=== PATIENT | female | born 1980 | race Caucasian/White ===

== ENCOUNTER 2016-12-07 19:06 | Emergency (ER) | payer BC, OTHER ==
[~2016-12-07] VITALS: Ht 162.6 cm; Wt 115.9 kg
[~2016-12-07 19:06] MED LIST: LVQ500 PO
[2016-12-07 19:08] VITALS: Ht 162.6 cm; Wt 115.9 kg
[2016-12-07] MEDS ORDERED: XYLOCAINE 1%/SOD BICARB 20 ML VIAL INFIL ONE (19:30)
[2016-12-07] MEDS ORDERED: DIPHTHERIA/TETANUS/PERTUSSIS 0.5 ML SYR/VIAL IM. ONE (19:30)
--- NOTE | 2016-12-07 19:32 | EMERGENCY ROOM VISIT NOTE ---
ED Visit Note First contact with patient: 19:18 CHIEF COMPLAINT: Hand laceration HISTORY OF PRESENT ILLNESS: This 36-year-old female patient presents to the emergency department restrained long, after cutting the palmar aspect of her right hand just proximal to the thumb. The patient states she was attempting to tie out her brother's dog, when the tire slipped, and her hand got cut on the metal clip at the end. The bleeding has stopped. Denies weakness or numbness of the hand or fingers. The patient rates the pain as throbbing and 6/ 10. The patient denies any other injuries. The patient's Tetanus shot is not up to date. The patient denies history of hypertension. She states she is extremely stressed out due to the laceration, and states her pain is moderate. She suspects these factors are leading towards her elevated blood pressure at this time. REVIEW OF SYSTEMS: A 6 system review of systems was completed with positives and pertinent negatives listed in the HPI. ALLERGIES: None MEDICATIONS: None PMH: None SOCIAL HISTORY: Patient lives locally with her family. She denies drug, tobacco , alcohol use. PHYSICAL EXAM: Vital Signs: Reviewed Nurse's notes, vital signs stable. GENERAL : 36-year-old female, in no acute distress, well-developed, well-nourished. SKIN: There is a 6 cm long laceration on the palmar aspect of the right hand, just proximal to the thumb. The edges gape apart with traction. There is no foreign material in the wound and it looks clean. There is minimal bleeding. No deep structures such as tendons, bones, or significant blood vessels are seen in the base of the wound. Normal strength and movement of the fingers and wrist. Capillary refill less than 2 seconds. Normal sensation to light and sharp touch. EMERGENCY DEPARTMENT COURSE: I examined the patient. Verbal consent was obtained to perform the procedure. Using sterile technique the wound was cleansed with Betadine. The area was sterilely draped. 12 ml of 1% buffered lidocaine was used to anesthetize the laceration on the hand. Once the patient was anesthetized, the wound was copiously irrigated under pressure with sterile saline. The wound was explored and was as described above. The laceration was repaired using 14 simple interrupted 5-0 nylon sutures with the wound edges being well approximated. The patient tolerated the procedure well. Hemostasis was achieved. The area was cleaned with sterile saline and dressed with bacitracin ointment and bandage. The patient was given Tdap immunization. The patient complained of a significant amount of pain after the procedure, as some areas were not completely anesthetized. She was given a dose of Percocet 5/325 and reports improvement in her discomfort. The patient was discharged home in good condition. DIAGNOSIS: Hand laceration DIFFERENTIAL DIAGNOSIS: Hand laceration with tendon involvement, metatarsal fracture, phalange fracture, and others. DISCHARGE INSTRUCTIONS & TREATMENT: Patient was found to have an elevated blood pressure and was referred to their primary doctor for recheck and further treatment. You have received 14 sutures on your right hand. These sutures are NOT dissolvable and WILL need to be removed by a health care provider in 8-10 days. You can return to the Emergency Department or contact your Primary Care Provider to have the sutures removed. Proper wound care is essential for adequate wound healing and infection prevention. You can shower and clean the wound with soap and water. Do not scour over the wound, pat dry with a towel. Do not submerse the wound (i.e. bathe or dish wash) until the sutures have been removed. You can use an antibiotic ointment with a dressing over the wound for the next 3-4 days. After this time you may leave the wound dry and open to the air. If crust develops over the wound you can use a Q-tip to apply a 1:1 peroxide:water solution to clean the wound. Look for signs of infection of the wound including: increased pain, swelling, foul discharge, streaking, or increased temperature. If any of these are noticed you should return to the Emergency Department for further assessment and treatment. As with any laceration you may have received nerve damage to the surrounding tissues. This damage may or may not be permanent. You should keep the area covered with sunscreen for the first 6 months to 1 year when at risk for exposure to help minimize scarring. You can also use scar reducing creams or Vitamin E oil to help minimize scarring. For pain control, you can use the following [id number]-hbkvlcz medicines (if >12 yo): - Regular strength (325mg/tab) Tylenol (acetaminophen) 2 tabs every 4-6 hours as needed. Do not exceed 12 tablets in a 24 hour period. Avoid taking more than 4 grams (4000 mg) of Tylenol per day. This includes any other sources of acetaminophen you may take on a regular basis. - Regular strength (200 mg/tab) Advil (ibuprofen) 1-2 tabs every 4-6 hours as needed. Do not exceed a dose of 3200 mg per day. Return to the emergency department if your symptoms worsen despite treatment course outlined above. Your blood pressure was elevated in the emergency department. You should follow up with a primary care provider for recheck and reevaluation of your blood pressure, as if this is not a situational outpatient, you may need to be put on medications. Problem List Medical Problems: (1) History of open heart surgery Status: Resolved Surgical Problems: (1) History of Status: Resolved Current/Historical Medications Scheduled Rkqzlnf-Vrvbxezfcazas-Tgcwonmx (Excedrin Migraine), 3 TABS PO DAILY Allergies Coded Allergies: No Known Allergies (Verified , 12/07/16) Vital Signs Date Time Temp Pulse Resp B/P (MAP) Pulse Ox O2 Delivery O2 Flow Rate FiO2 12/07/16 19:08 36.7 100 16 197/113 95 Room Air Medications Administered Medications (Trade) Dose Ordered Sig/Jose Route Start Time Stop Time Status Last Admin Dose Admin Diphtheria/ Pertussis/Tetanus Vacc (Adacel Inj) 0.5 ml ONCE ONCE IM. 12/07/16 19:30 12/07/16 19:31 DC 12/07/16 19:54 0.5 ML Oxycodone/ Acetaminophen (Percocet 5-325mg Tab) 1 tab NOW STAT PO 12/07/16 20:54 12/07/16 20:55 DC 12/07/16 20:54 1 TAB Departure Information Impression Primary Impression: Hand laceration Dispostion Home / Self-Care Condition GOOD Referrals Ganga Vences M.D. ([facility]) (PCP) Patient Instructions [facility] Additional Instructions You have received 14 sutures on your right hand. These sutures are NOT dissolvable and WILL need to be removed by a health care provider in 8-10 days. You can return to the Emergency Department or contact your Primary Care Provider to have the sutures removed. Proper wound care is essential for adequate wound healing and infection prevention. You can shower and clean the wound with soap and water. Do not scour over the wound, pat dry with a towel. Do not submerse the wound (i.e. bathe or dish wash) until the sutures have been removed. You can use an antibiotic ointment with a dressing over the wound for the next 3-4 days. After this time you may leave the wound dry and open to the air. If crust develops over the wound you can use a Q-tip to apply a 1:1 peroxide:water solution to clean the wound. Look for signs of infection of the wound including: increased pain, swelling, foul discharge, streaking, or increased temperature. If any of these are noticed you should return to the Emergency Department for further assessment and treatment. As with any laceration you may have received nerve damage to the surrounding tissues. This damage may or may not be permanent. You should keep the area covered with sunscreen for the first 6 months to 1 year when at risk for exposure to help minimize scarring. You can also use scar reducing creams or Vitamin E oil to help minimize scarring. For pain control, you can use the following fhit-kjb-[id number] medicines (if >12 yo): - Regular strength (325mg/tab) Tylenol (acetaminophen) 2 tabs every 4-6 hours as needed. Do not exceed 12 tablets in a 24 hour period. Avoid taking more than 4 grams (4000 mg) of Tylenol per day. This includes any other sources of acetaminophen you may take on a regular basis. - Regular strength (200 mg/tab) Advil (ibuprofen) 1-2 tabs every 4-6 hours as needed. Do not exceed a dose of 3200 mg per day. Return to the emergency department if your symptoms worsen despite treatment course outlined above. Your blood pressure was elevated in the emergency department. You should follow up with a primary care provider for recheck and reevaluation of your blood pressure, as if this is not a situational outpatient, you may need to be put on medications. Problem Qualifiers Primary Impression: Hand laceration Encounter type: initial encounter Foreign body presence: without foreign body Laterality: right Qualified Codes: S61.411A - Laceration without foreign body of right hand, initial encounter
[2016-12-07] MEDS ORDERED: ASPI-390 PO (19:36)
[2016-12-07] MEDS ORDERED: OXYCODONE/ACETAMINOPHEN 5-325 TAB PO STA (20:54)
[2016-12-07 21:28] VITALS: BP 208/105; PULSE 100; TEMP 36.7; O2SAT 95
== END 2016-12-07 21:29 | disposition home or self-care (01) ==
LOC: C.EDB 19:07 → C.EDD 21:29
DX: S61.411A Laceration without foreign body of right hand, initial encounter (principal); W45.8XXA Other foreign body or object entering through skin, initial encounter; Z23 Encounter for immunization

== ENCOUNTER 2022-04-30 18:39 | Inpatient (IN) ==
[2022-04-30] MEDS ORDERED: CEFEPIME 2,000 MG/20 ML VIAL IV STA (18:58)
[2022-04-30] MEDS ORDERED: ALBUT/IPRATROP 3MG/0.5MG NEB 3 ML VIAL NEB ONE (19:03)
[2022-04-30] MEDS ORDERED: dexAMETHasone**PF** 10 MG/ML VIAL IV ONE (19:03)
--- NOTE | 2022-04-30 19:03 | Emergency Department Note ---
Impression & Plan Acute hypoxemic respiratory failure, Right lower lobe pneumonia, Adenovirus infection, Substernal chest pain ED Provider Note Name: ANU VILLARREAL Age: 42 Sex: F Arrives Via: Walk-In Informant: Patient, ED Provider: Reggie Melara MD Chief Complaint: Shortness of breath Impression: As per impressions above Medical Decision Making: Pleasant 42-year-old female with a history of hypertension, diabetes, asthma who has a previous ASD repair at the age of 15 as well as previous . Patient with rapidly worsening breathing and substernal chest pain throughout the day today. She was diagnosed with a right lower lobe pneumonia 2 days ago in the ER. At that time she had an extensive work-up including a CTA of the chest without evidence of PE or dissection. On arrival patient is quite short of breath oxygen in the low 90s she is significantly tachycardic and I have significant concerns for developing sepsis. Septic work-up initiated she had blood cultures, lactic acid obtained as well as 30/kg IV fluids started given her tachycardia and dehydration status. She was empirically given IV cefepime. Chest x-ray confirms right lower lobe infiltrate and she was started on an hour- long nebulizer given her breathing difficulty. She was also given IV steroids at this time. The patient does feel somewhat better after nebulizer and fluids though she is noted to worsening oxygenation requiring 6 L nasal cannula to keep her O2 sats in the low to mid 90s. She is not in significant distress at this time but is definitively requiring oxygen for support. Hospitalist consulted for further management. I will note on repeat evaluations patient is well- hydrated her heart rate has improved to the 90s she has good cap refill and is stable appearing other than her hypoxia. I will note that throughout the beginning of her stay patient with substernal chest pressure.. Her EKG was unremarkable and it was repeated 15 minutes later without any significant changes. Her troponin is normal and I suspect her substernal discomfort is more due to respiratory issue than cardiac at this time. There is no widening of the mediastinum and I not feel that there is evidence of dissection and it seems unlikely that she would have developed a PE in just the last 2 days given her other findings. Prior Medical Record and Triage/Nursing Notes reviewed by Me Additional history obtained from chart and Differentials:Reactive airway disease, pneumonia, pneumothorax, COPD, CHF, infections, cardiac ischemia, pulmonary embolism, musculoskeletal, gastrointestinal, as well as other pathologies. Vital Signs: reviewed and remarkable for mildly low O2 sats on arrival though dropping throughout her stay. Interventions: 2 L normal saline bolus (Given the patients BMI >30, IBW was used to calculate the 30ml/kg fluid bolus), cefepime 2 g IV, Decadron 10 mg IV, DuoNeb 1 hour neb Labs:Reviewed and remarkable for all note the patient had Imagin view chest x-ray reveals right lower lobe infiltrate EKG:As per my interpretation. Indication chest pain. Sinus tachycardia at 112 bpm and QTC of 450. There are no previous EKGs for comparison. There is no ectopy. There is no STEMI appreciated. There are Q waves septally. Cardiac/Tele Monitoring: Cardiac Monitoring: An Order was placed for continuous cardiac monitoring. The monitor shows a rate of 120 with a sinus tach rhythm. Consults:Dr Ezekiel RUANO Hospitalist Plan: Disposition:Hospitalization. Condition: Good History of Present Illness: 42-year-old female arrives for evaluation of illness. Patient notes she has been ill for the last week or so. She was seen in the ER few days ago and diagnosed with a right lower lobe pneumonia. She was started on Doxy and Omnicef. Patient states that since getting home symptoms have continued to worsen. She states any exertion she gets severely short of breath. She is unable to ambulate. She feels weak fatigued and has no appetite. She has not had a fever but feels chills. She did have diffuse body aches. She notes she started having a pressure-like chest sensation over the last few days as well. Feels like she has a rattle in her lungs and she cannot take a deep breath. No falls, trauma, injuries. She denies any rashes, abdominal pain, headache, neck pain, sore throat, back pain, urinary/bowel symptoms, leg swelling, calf pain or other concerning signs or symptoms. She does have a history of pneumonia several years ago which she was quite sick for. She does have a history of an atrial septal defect repaired at age 15. Patient has been taking antibiotics without improvement. Any exertion makes severely worse. Rest makes lately better. ROS: See above HPI for pertinent positives & negatives. A total of 10 systems reviewed and were otherwise negative. Past Medical History:Hypertension, diabetes, asthma Past Surgical History:Open heart surgery for septal defect Family History:See Below Social History:See Below Home Medications:See Below Allergies:NKDA Vitals:Blood Pressure: 159/102, Pulse 120, RR 18, T 36.5C, O2 93% on RA Physical Exam: GENERAL: Patient is unwell appearing and in moderate distress. EYES: No scleral icterus, unremarkable pupils. ENT: Mucous membranes dry, no nasal congestion. NECK: No masses appreciated, nomeningismus, trachea is midline. RESPIRATORY: Tachycardic, dyspneic. Diffuse wheezing with crackles in right lower lobe CARDIOVASCULAR: Tachy.No murmurs, rubs, gallops appreciated. GASTROINTESTINAL: Abdomen soft, non-tender, no peritonitis.Bowel sounds positive.No masses appreciated. BACK: No midline tenderness, no CVA tenderness EXTREMITIES: Normal motion all extremities, no cyanosis, no edema. NEUROLOGIC: Alert and oriented, no acute motor or sensory deficits, no focal weakness, cranial nerves grossly intact. SKIN: No rash, no jaundice, no diaphoresis. PSYCH: Appropriate GCS: 15 ED Course: Times/Reassessments: Multiple repeat evaluations of patient throughout her stay. She is improving with the IV fluid bolus and nebulizer. Oxygen though is dropping throughout her stay and requiring increased nasal cannula O2. Agreeable to hospitalization. Critical Care: I have personally spent 40 minutes of critical care time in the direct management of this patient. Hypoxic respiratory failure secondary to right lower lobe pneumonia and early. This was a life/limb threatening event. This 40 minutes is in excess of all separately billable procedures. Reggie Melara MD Past Med/Surg History Medical History Diabetes mellitus Pneumonia Social History Smoking Status: Never smoker Second Hand Exposure: No; Do You Dip or Chew Tobacco: No; Tobacco Cessation Education Requested by Patient: No Hx Alcohol Use: No Hx Substance Use: No Preferred Language: Sudanese Communication Ability: Effective Sandblaster Supervisor Required: No Beliefs That Will Affect Care: None Current Living Situation: Spouse Current Living Situation Comment: Home with Other Information That Helps Us Care for You: No Feels Safe at Home: Yes Safety Concerns: Feels Safe At This Time Allergies Allergies Allergy/AdvReac Type Severity Reaction Status Date / Time No Known Allergies Allergy Verified 04/30/22 19:45 Home Meds Home Medications Medication Instructions Recorded Confirmed lisinopril 10 1 tab PO DAILY 04/27/22 04/30/22 mg-hydrochlorothiazide 12.5 mg tablet metformin 500 mg tablet,extended 1,000 mg PO BID 04/27/22 04/30/22 release 24 hr Previous Rx's Medication Instructions Recorded albuterol sulfate 90 mcg/actuation 2 inh inhalation Q6H #18 grams 04/27/22 aerosol inhaler cefdinir 300 mg capsule 300 mg PO BID 10 days #20 caps 04/27/22 doxycycline hyclate 100 mg tablet 100 mg PO BID 10 days #20 tabs 04/27/22 Results & Data (ED) Vital Signs Vital Signs - 24 hr 04/30/22 18:44 04/30/22 19:03 04/30/22 19:03 Temperature 36.5 C Temperature Source Oral Pulse Rate 120 H Pulse Rate [Carotid] 107 H Pulse Rate from SpO2 Sensor Pulse Rhythm Regular Pulse Rhythm [Carotid] Regular Pulse Strength Normal Pulse Strength [Carotid] Normal Respiratory Rate 18 24 Respiratory Effort / Characteristics Non-Labored Spontaneous Respiratory Depth Normal Shallow Respiratory Pattern Regular Blood Pressure 159/102 H Blood Pressure [Left Arm] 179/113 H Blood Pressure Mean 121 Blood Pressure Mean [Left Arm] 135 Blood Pressure Position Sitting Pulse Oximetry 93 93 93 Oxygen Delivery Method Room Air Room Air Room Air Oxygen Flow Rate Sepsis Recent Fever Within 48 Hours No Sepsis New/Unexplained Change in Mental Status No Sepsis Action Taken by Nursing No Action Required 04/30/22 19:06 04/30/22 20:00 04/30/22 18:57 Temperature Temperature Source Pulse Rate 107 H 118 H Pulse Rate [Carotid] 101 H Pulse Rate from SpO2 Sensor 121 H Pulse Rhythm Regular Pulse Rhythm [Carotid] Regular Pulse Strength Pulse Strength [Carotid] Normal Respiratory Rate 26 H 20 30 H Respiratory Effort / Characteristics Respiratory Depth Respiratory Pattern Blood Pressure Blood Pressure [Left Arm] Blood Pressure Mean Blood Pressure Mean [Left Arm] Blood Pressure Position Pulse Oximetry 95 99 95 Oxygen Delivery Method Room Air Room Air Oxygen Flow Rate Sepsis Recent Fever Within 48 Hours Sepsis New/Unexplained Change in Mental Status Sepsis Action Taken by Nursing 04/30/22 19:00 04/30/22 19:03 04/30/22 19:03 Temperature Temperature Source Pulse Rate 112 H 108 H Pulse Rate [Carotid] Pulse Rate from SpO2 Sensor 113 H 110 H Pulse Rhythm Pulse Rhythm [Carotid] Pulse Strength Pulse Strength [Carotid] Respiratory Rate 18 32 H Respiratory Effort / Characteristics Respiratory Depth Respiratory Pattern Blood Pressure 179/113 H Blood Pressure [Left Arm] Blood Pressure Mean 135 Blood Pressure Mean [Left Arm] Blood Pressure Position Pulse Oximetry 94 94 Oxygen Delivery Method Oxygen Flow Rate Sepsis Recent Fever Within 48 Hours Sepsis New/Unexplained Change in Mental Status Sepsis Action Taken by Nursing 04/30/22 19:10 04/30/22 19:15 04/30/22 19:15 Temperature Temperature Source Pulse Rate 105 H 107 H Pulse Rate [Carotid] Pulse Rate from SpO2 Sensor 106 H 108 H Pulse Rhythm Pulse Rhythm [Carotid] Pulse Strength Pulse Strength [Carotid] Respiratory Rate 33 H 24 Respiratory Effort / Characteristics Respiratory Depth Respiratory Pattern Blood Pressure 159/105 H Blood Pressure [Left Arm] Blood Pressure Mean 123 Blood Pressure Mean [Left Arm] Blood Pressure Position Pulse Oximetry 94 91 Oxygen Delivery Method Oxygen Flow Rate Sepsis Recent Fever Within 48 Hours Sepsis New/Unexplained Change in Mental Status Sepsis Action Taken by Nursing 04/30/22 19:20 04/30/22 19:30 04/30/22 19:40 Temperature Temperature Source Pulse Rate 98 H 104 H 108 H Pulse Rate [Carotid] Pulse Rate from SpO2 Sensor 99 H 108 H Pulse Rhythm Pulse Rhythm [Carotid] Pulse Strength Pulse Strength [Carotid] Respiratory Rate 12 20 24 Respiratory Effort / Characteristics Respiratory Depth Respiratory Pattern Blood Pressure Blood Pressure [Left Arm] Blood Pressure Mean Blood Pressure Mean [Left Arm] Blood Pressure Position Pulse Oximetry 95 97 Oxygen Delivery Method Oxygen Flow Rate Sepsis Recent Fever Within 48 Hours Sepsis New/Unexplained Change in Mental Status Sepsis Action Taken by Nursing 04/30/22 19:45 04/30/22 19:45 04/30/22 19:50 Temperature Temperature Source Pulse Rate 111 H 94 H Pulse Rate [Carotid] Pulse Rate from SpO2 Sensor 110 H 95 H Pulse Rhythm Pulse Rhythm [Carotid] Pulse Strength Pulse Strength [Carotid] Respiratory Rate 19 21 Respiratory Effort / Characteristics Respiratory Depth Respiratory Pattern Blood Pressure 175/110 H Blood Pressure [Left Arm] Blood Pressure Mean 131 Blood Pressure Mean [Left Arm] Blood Pressure Position Pulse Oximetry 90 95 Oxygen Delivery Method Oxygen Flow Rate Sepsis Recent Fever Within 48 Hours Sepsis New/Unexplained Change in Mental Status Sepsis Action Taken by Nursing 04/30/22 20:00 04/30/22 20:00 04/30/22 20:10 Temperature Temperature Source Pulse Rate 96 H 99 H Pulse Rate [Carotid] Pulse Rate from SpO2 Sensor 94 H 99 H Pulse Rhythm Pulse Rhythm [Carotid] Pulse Strength Pulse Strength [Carotid] Respiratory Rate 24 16 Respiratory Effort / Characteristics Respiratory Depth Respiratory Pattern Blood Pressure 184/117 H Blood Pressure [Left Arm] Blood Pressure Mean 139 Blood Pressure Mean [Left Arm] Blood Pressure Position Pulse Oximetry 98 100 Oxygen Delivery Method Oxygen Flow Rate Sepsis Recent Fever Within 48 Hours Sepsis New/Unexplained Change in Mental Status Sepsis Action Taken by Nursing 04/30/22 20:15 04/30/22 20:15 04/30/22 20:20 Temperature Temperature Source Pulse Rate 105 H Pulse Rate [Carotid] Pulse Rate from SpO2 Sensor 103 H Pulse Rhythm Pulse Rhythm [Carotid] Pulse Strength Pulse Strength [Carotid] Respiratory Rate 23 Respiratory Effort / Characteristics Respiratory Depth Respiratory Pattern Blood Pressure 182/107 H 174/112 H Blood Pressure [Left Arm] Blood Pressure Mean 132 132 Blood Pressure Mean [Left Arm] Blood Pressure Position Pulse Oximetry 90 Oxygen Delivery Method Oxygen Flow Rate Sepsis Recent Fever Within 48 Hours Sepsis New/Unexplained Change in Mental Status Sepsis Action Taken by Nursing 04/30/22 20:20 04/30/22 20:30 04/30/22 20:30 Temperature Temperature Source Pulse Rate 104 H 113 H Pulse Rate [Carotid] Pulse Rate from SpO2 Sensor 104 H 113 H Pulse Rhythm Pulse Rhythm [Carotid] Pulse Strength Pulse Strength [Carotid] Respiratory Rate 19 22 Respiratory Effort / Characteristics Respiratory Depth Respiratory Pattern Blood Pressure 169/99 H Blood Pressure [Left Arm] Blood Pressure Mean 122 Blood Pressure Mean [Left Arm] Blood Pressure Position Pulse Oximetry 100 96 Oxygen Delivery Method Oxygen Flow Rate Sepsis Recent Fever Within 48 Hours Sepsis New/Unexplained Change in Mental Status Sepsis Action Taken by Nursing 04/30/22 20:40 04/30/22 20:45 04/30/22 20:45 Temperature Temperature Source Pulse Rate 113 H 120 H Pulse Rate [Carotid] Pulse Rate from SpO2 Sensor 114 H 119 H Pulse Rhythm Pulse Rhythm [Carotid] Pulse Strength Pulse Strength [Carotid] Respiratory Rate 20 20 Respiratory Effort / Characteristics Respiratory Depth Respiratory Pattern Blood Pressure 190/120 H Blood Pressure [Left Arm] Blood Pressure Mean 143 Blood Pressure Mean [Left Arm] Blood Pressure Position Pulse Oximetry 96 96 Oxygen Delivery Method Oxygen Flow Rate Sepsis Recent Fever Within 48 Hours Sepsis New/Unexplained Change in Mental Status Sepsis Action Taken by Nursing 04/30/22 21:15 04/30/22 21:28 04/30/22 20:50 Temperature Temperature Source Pulse Rate 119 H Pulse Rate [Carotid] 113 H Pulse Rate from SpO2 Sensor 118 H Pulse Rhythm Pulse Rhythm [Carotid] Regular Pulse Strength Pulse Strength [Carotid] Normal Respiratory Rate 28 H 26 H 36 H Respiratory Effort / Characteristics Short of Breath Respiratory Depth Shallow Shallow Respiratory Pattern Blood Pressure Blood Pressure [Left Arm] 159/99 H Blood Pressure Mean Blood Pressure Mean [Left Arm] 119 Blood Pressure Position Pulse Oximetry 88 L 94 96 Oxygen Delivery Method Room Air Oxymask Oxygen Flow Rate 15 Sepsis Recent Fever Within 48 Hours Sepsis New/Unexplained Change in Mental Status Sepsis Action Taken by Nursing 04/30/22 21:00 04/30/22 21:00 04/30/22 21:06 Temperature Temperature Source Pulse Rate 120 H Pulse Rate [Carotid] Pulse Rate from SpO2 Sensor 120 H Pulse Rhythm Pulse Rhythm [Carotid] Pulse Strength Pulse Strength [Carotid] Respiratory Rate 27 H Respiratory Effort / Characteristics Respiratory Depth Respiratory Pattern Blood Pressure 205/134 H 174/97 H Blood Pressure [Left Arm] Blood Pressure Mean 157 122 Blood Pressure Mean [Left Arm] Blood Pressure Position Pulse Oximetry 90 Oxygen Delivery Method Oxygen Flow Rate Sepsis Recent Fever Within 48 Hours Sepsis New/Unexplained Change in Mental Status Sepsis Action Taken by Nursing 04/30/22 21:06 04/30/22 21:10 04/30/22 21:12 Temperature Temperature Source Pulse Rate 120 H 117 H Pulse Rate [Carotid] Pulse Rate from SpO2 Sensor 120 H 117 H Pulse Rhythm Pulse Rhythm [Carotid] Pulse Strength Pulse Strength [Carotid] Respiratory Rate 30 H 25 H Respiratory Effort / Characteristics Respiratory Depth Respiratory Pattern Blood Pressure 152/102 H Blood Pressure [Left Arm] Blood Pressure Mean 118 Blood Pressure Mean [Left Arm] Blood Pressure Position Pulse Oximetry 91 91 Oxygen Delivery Method Oxygen Flow Rate Sepsis Recent Fever Within 48 Hours Sepsis New/Unexplained Change in Mental Status Sepsis Action Taken by Nursing 04/30/22 21:12 04/30/22 21:15 04/30/22 21:15 Temperature Temperature Source Pulse Rate 99 H 97 H Pulse Rate [Carotid] Pulse Rate from SpO2 Sensor 103 H 97 H Pulse Rhythm Pulse Rhythm [Carotid] Pulse Strength Pulse Strength [Carotid] Respiratory Rate 32 H 19 Respiratory Effort / Characteristics Respiratory Depth Respiratory Pattern Blood Pressure 159/99 H Blood Pressure [Left Arm] Blood Pressure Mean 119 Blood Pressure Mean [Left Arm] Blood Pressure Position Pulse Oximetry 91 93 Oxygen Delivery Method Oxygen Flow Rate Sepsis Recent Fever Within 48 Hours Sepsis New/Unexplained Change in Mental Status Sepsis Action Taken by Nursing 04/30/22 21:20 04/30/22 21:30 04/30/22 21:30 Temperature Temperature Source Pulse Rate 110 H 95 H Pulse Rate [Carotid] Pulse Rate from SpO2 Sensor 108 H 95 H Pulse Rhythm Pulse Rhythm [Carotid] Pulse Strength Pulse Strength [Carotid] Respiratory Rate 25 H 17 Respiratory Effort / Characteristics Respiratory Depth Respiratory Pattern Blood Pressure 154/84 H Blood Pressure [Left Arm] Blood Pressure Mean 107 Blood Pressure Mean [Left Arm] Blood Pressure Position Pulse Oximetry 95 97 Oxygen Delivery Method Oxygen Flow Rate Sepsis Recent Fever Within 48 Hours Sepsis New/Unexplained Change in Mental Status Sepsis Action Taken by Nursing 04/30/22 21:40 04/30/22 21:50 Temperature Temperature Source Pulse Rate 103 H 97 H Pulse Rate [Carotid] Pulse Rate from SpO2 Sensor 104 H 99 H Pulse Rhythm Pulse Rhythm [Carotid] Pulse Strength Pulse Strength [Carotid] Respiratory Rate 30 H 26 H Respiratory Effort / Characteristics Respiratory Depth Respiratory Pattern Blood Pressure Blood Pressure [Left Arm] Blood Pressure Mean Blood Pressure Mean [Left Arm] Blood Pressure Position Pulse Oximetry 94 92 Oxygen Delivery Method Oxygen Flow Rate Sepsis Recent Fever Within 48 Hours Sepsis New/Unexplained Change in Mental Status Sepsis Action Taken by Nursing Laboratory Data Result diagrams: 05/01/22 04:56 05/01/22 04:56 Lab Results 04/30/22 04/30/22 04/30/22 Range/Units 19:16 19:16 19:16 WBC 8.35 (4.8-10.8) K/ul RBC 4.69 (3.93-5.22) M/uL Hgb 13.9 (12.0-16.0) g/dl Hct 39.5 (34.1-44.9) % MCV 84.2 (80.0-100.0) fL MCH 29.6 (25.0-34.0) pg MCHC 35.2 (32.0-36.0) g/dL RDW Std Deviation 35.8 L (36.4-46.3) fL RDW Coeff of Eleonora 11.9 (11.5-14.5) % Plt Count 299 (130-400) K/uL MPV 10.4 (9.4-12.3) fL Immature Gran % (Auto) 1.2 % Neut % (Auto) 70.1 % Lymph % (Auto) 17.0 % Coal % (Auto) 8.4 % Eos % (Auto) 2.5 % Baso % (Auto) 0.8 % Neut # (Auto) 5.85 (1.4-6.5) K/uL Lymph # (Auto) 1.42 (1.2-3.4) K/uL Coal # (Auto) 0.70 (0.24-0.82) K/uL Eos # (Auto) 0.21 (0-0.50) K/uL Baso # (Auto) 0.07 (0-0.2) K/uL Immature Gran # (Auto) 0.10 H (0.00-0.02) K/uL ABG pH (7.35-7.45) ABG pCO2 (35-46) mmHg ABG pO2 (80-95) mmHg ABG HCO3 (19-24) mmol/L ABG O2 Saturation (90-95) % ABG Base Excess (-9-1.8) mEq/L El Test (Pos) Oxygen Given Sodium 135 L (136-145) mmol/L Potassium 3.7 (3.5-5.1) mmol/L Chloride 98 (98-107) mmol/L Carbon Dioxide 25 (21-32) mmol/L Anion Gap 12 H (3-11) BUN 14 (6-23) mg/dl Creatinine 0.71 (0.6-1.2) mg/dl Est Cr Clr Drug Dosing 118.3 ml/min Est GFR ( Amer) 122.6 ml/min Est GFR (Non-Af Amer) 105.8 ml/min BUN/Creatinine Ratio 19.7 (10-20) Glucose 270 H (70-99(Fasting)) mg/dl Estimat Average Glucose mg/dl Hemoglobin A1c (4.5-5.6) % Lactate 1.5 (0.4-2.0) mmol/L Calcium 9.5 (8.5-10.1) mg/dl Magnesium 1.7 (1.7-2.4) mg/dl Total Bilirubin 0.5 (0.2-1.0) mg/dl Direct Bilirubin 0.1 (0-0.2) mg/dl AST 24 (13-39) U/L ALT 25 (7-52) U/L Alkaline Phosphatase 66 (34-104) U/L Troponin I High Sens 3.7 (0-14) pg/ml Total Protein 7.7 (6.0-8.3) gm/dl Albumin 3.9 (3.4-5.0) gm/dl Procalcitonin (0-0.5) ng/ml TSH (0.300-4.500) uIu/ml Adenovirus (PCR) (NotDetected) B. pertussis DNA (PCR) (NotDetected) B.parapertussis DNA PCR (NotDetected) C. pneumoniae DNA (PCR) (NotDetected) Coronavirus OC43 (PCR) (NotDetected) Coronavirus HKU1 (PCR) (NotDetected) Coronavirus 229E (PCR) (NotDetected) SARS-CoV-2 (PCR) (NotDetected) Coronavirus NL63 (PCR) (NotDetected) Human Metapneumovir PCR (NotDetected) Influenza Type A (PCR) (NotDetected) Influenza Type B (PCR) (NotDetected) M. pneumoniae (PCR) (NotDetected) Parainfluenza 1 (PCR) (NotDetected) Parainfluenza 2 (PCR) (NotDetected) Parainfluenza 3 (PCR) (NotDetected) Parainfluenza 4 (PCR) (NotDetected) RSV (PCR) (NotDetected) Entero/Rhino (PCR) (NotDetected) 04/30/22 04/30/22 04/30/22 Range/Units 19:16 19:16 19:16 WBC (4.8-10.8) K/ul RBC (3.93-5.22) M/uL Hgb (12.0-16.0) g/dl Hct (34.1-44.9) % MCV (80.0-100.0) fL MCH (25.0-34.0) pg MCHC (32.0-36.0) g/dL RDW Std Deviation (36.4-46.3) fL RDW Coeff of Eleonora (11.5-14.5) % Plt Count (130-400) K/uL MPV (9.4-12.3) fL Immature Gran % (Auto) % Neut % (Auto) % Lymph % (Auto) % Coal % (Auto) % Eos % (Auto) % Baso % (Auto) % Neut # (Auto) (1.4-6.5) K/uL Lymph # (Auto) (1.2-3.4) K/uL Coal # (Auto) (0.24-0.82) K/uL Eos # (Auto) (0-0.50) K/uL Baso # (Auto) (0-0.2) K/uL Immature Gran # (Auto) (0.00-0.02) K/uL ABG pH (7.35-7.45) ABG pCO2 (35-46) mmHg ABG pO2 (80-95) mmHg ABG HCO3 (19-24) mmol/L ABG O2 Saturation (90-95) % ABG Base Excess (-9-1.8) mEq/L El Test (Pos) Oxygen Given Sodium (136-145) mmol/L Potassium (3.5-5.1) mmol/L Chloride (98-107) mmol/L Carbon Dioxide (21-32) mmol/L Anion Gap (3-11) BUN (6-23) mg/dl Creatinine (0.6-1.2) mg/dl Est Cr Clr Drug Dosing ml/min Est GFR ( Amer) ml/min Est GFR (Non-Af Amer) ml/min BUN/Creatinine Ratio (10-20) Glucose (70-99(Fasting)) mg/dl Estimat Average Glucose 220 mg/dl Hemoglobin A1c 9.3 H (4.5-5.6) % Lactate (0.4-2.0) mmol/L Calcium (8.5-10.1) mg/dl Magnesium (1.7-2.4) mg/dl Total Bilirubin (0.2-1.0) mg/dl Direct Bilirubin (0-0.2) mg/dl AST (13-39) U/L ALT (7-52) U/L Alkaline Phosphatase (34-104) U/L Troponin I High Sens (0-14) pg/ml Total Protein (6.0-8.3) gm/dl Albumin (3.4-5.0) gm/dl Procalcitonin 0.10 (0-0.5) ng/ml TSH 0.629 (0.300-4.500) uIu/ml Adenovirus (PCR) (NotDetected) B. pertussis DNA (PCR) (NotDetected) B.parapertussis DNA PCR (NotDetected) C. pneumoniae DNA (PCR) (NotDetected) Coronavirus OC43 (PCR) (NotDetected) Coronavirus HKU1 (PCR) (NotDetected) Coronavirus 229E (PCR) (NotDetected) SARS-CoV-2 (PCR) (NotDetected) Coronavirus NL63 (PCR) (NotDetected) Human Metapneumovir PCR (NotDetected) Influenza Type A (PCR) (NotDetected) Influenza Type B (PCR) (NotDetected) M. pneumoniae (PCR) (NotDetected) Parainfluenza 1 (PCR) (NotDetected) Parainfluenza 2 (PCR) (NotDetected) Parainfluenza 3 (PCR) (NotDetected) Parainfluenza 4 (PCR) (NotDetected) RSV (PCR) (NotDetected) Entero/Rhino (PCR) (NotDetected) 04/30/22 04/30/22 Range/Units 19:28 21:46 WBC (4.8-10.8) K/ul RBC (3.93-5.22) M/uL Hgb (12.0-16.0) g/dl Hct (34.1-44.9) % MCV (80.0-100.0) fL MCH (25.0-34.0) pg MCHC (32.0-36.0) g/dL RDW Std Deviation (36.4-46.3) fL RDW Coeff of Eleonora (11.5-14.5) % Plt Count (130-400) K/uL MPV (9.4-12.3) fL Immature Gran % (Auto) % Neut % (Auto) % Lymph % (Auto) % Coal % (Auto) % Eos % (Auto) % Baso % (Auto) % Neut # (Auto) (1.4-6.5) K/uL Lymph # (Auto) (1.2-3.4) K/uL Coal # (Auto) (0.24-0.82) K/uL Eos # (Auto) (0-0.50) K/uL Baso # (Auto) (0-0.2) K/uL Immature Gran # (Auto) (0.00-0.02) K/uL ABG pH 7.43 (7.35-7.45) ABG pCO2 30 L (35-46) mmHg ABG pO2 104 H (80-95) mmHg ABG HCO3 20 (19-24) mmol/L ABG O2 Saturation 98.6 H (90-95) % ABG Base Excess -3.3 (-9-1.8) mEq/L El Test Pos (Pos) Oxygen Given 15 Sodium (136-145) mmol/L Potassium (3.5-5.1) mmol/L Chloride (98-107) mmol/L Carbon Dioxide (21-32) mmol/L Anion Gap (3-11) BUN (6-23) mg/dl Creatinine (0.6-1.2) mg/dl Est Cr Clr Drug Dosing ml/min Est GFR ( Amer) ml/min Est GFR (Non-Af Amer) ml/min BUN/Creatinine Ratio (10-20) Glucose (70-99(Fasting)) mg/dl Estimat Average Glucose mg/dl Hemoglobin A1c (4.5-5.6) % Lactate (0.4-2.0) mmol/L Calcium (8.5-10.1) mg/dl Magnesium (1.7-2.4) mg/dl Total Bilirubin (0.2-1.0) mg/dl Direct Bilirubin (0-0.2) mg/dl AST (13-39) U/L ALT (7-52) U/L Alkaline Phosphatase (34-104) U/L Troponin I High Sens (0-14) pg/ml Total Protein (6.0-8.3) gm/dl Albumin (3.4-5.0) gm/dl Procalcitonin (0-0.5) ng/ml TSH (0.300-4.500) uIu/ml Adenovirus (PCR) DETECTED A* (NotDetected) B. pertussis DNA (PCR) Not Detected (NotDetected) B.parapertussis DNA PCR Not Detected (NotDetected) C. pneumoniae DNA (PCR) Not Detected (NotDetected) Coronavirus OC43 (PCR) Not Detected (NotDetected) Coronavirus HKU1 (PCR) Not Detected (NotDetected) Coronavirus 229E (PCR) Not Detected (NotDetected) SARS-CoV-2 (PCR) Not Detected (NotDetected) Coronavirus NL63 (PCR) Not Detected (NotDetected) Human Metapneumovir PCR Not Detected (NotDetected) Influenza Type A (PCR) Not Detected (NotDetected) Influenza Type B (PCR) Not Detected (NotDetected) M. pneumoniae (PCR) Not Detected (NotDetected) Parainfluenza 1 (PCR) Not Detected (NotDetected) Parainfluenza 2 (PCR) Not Detected (NotDetected) Parainfluenza 3 (PCR) Not Detected (NotDetected) Parainfluenza 4 (PCR) Not Detected (NotDetected) RSV (PCR) Not Detected (NotDetected) Entero/Rhino (PCR) Not Detected (NotDetected) Administered Medications Enoxaparin Sodium (Enoxaparin Inj 40 Mg/0.4 Ml Syr) 40 mg SQ QAM [facility] Stop: 05/31/22 08:59 Last Admin: 05/01/22 08:49 Dose: 40 mg Documented By: [id number] Piperacillin Sod/Tazobactam (Sod 4.5 gm/ Dextrose) 120 mls @ 30 mls/hr IV Q8H [facility]; Protocol Stop: 05/08/22 05:59 Last Infusion: 05/01/22 10:16 Dose: 0 mls/hr Documented By: [id number] Admin: 05/01/22 06:04 Dose: 30 mls/hr Documented By: ARR Sodium Chloride (Nss 1000ml) 1,000 mls @ 50 mls/hr IV .Q20H ONE Stop: 05/01/22 21:36 Last Admin: 05/01/22 02:01 Dose: 50 mls/hr Documented By: ARR Insulin Aspart (Insulin Aspart Per Unit) 0 units SC ACHS [facility] Stop: 05/31/22 03:59 Last Admin: 05/01/22 08:48 Dose: 3 units Documented By: [id number] Co-signed By: MINNIE Admin: 05/01/22 04:19 Dose: 7 units Documented By: ARR Co-signed By: SHANNAN Insulin Glargine (Lantus Per Unit Charge) 20 units SQ BID [facility] Stop: 05/31/22 05:39 Last Admin: 05/01/22 06:09 Dose: 20 units Documented By: ARR Co-signed By: RUBIN Ipratropium [place] (Ipratropium [place] Neb Soln 0.02% 2.5 Ml Vial) 0.5 mg INH Q6R [facility] Stop: 05/31/22 00:59 Last Admin: 05/01/22 06:56 Dose: 0.5 mg Documented By: Admin: 05/01/22 01:52 Dose: 0.5 mg Documented By: KISHAN Levalbuterol HCl (Levalbuterol 1.25mg/0.5ml Neb) 1.25 mg INH Q6R [facility] Stop: 05/31/22 00:59 Last Admin: 05/01/22 06:56 Dose: 1.25 mg Documented By: Admin: 05/01/22 01:52 Dose: 1.25 mg Documented By: KISHAN Lisinopril (Lisinopril 10 Mg Tab) 10 mg PO QAM [facility] Stop: 05/31/22 08:59 Last Admin: 05/01/22 08:49 Dose: 10 mg Documented By: [id number] Prednisone (Prednisone 20 Mg Tab) 20 mg PO DAILY [facility] Stop: 05/04/22 08:59 Last Admin: 05/01/22 08:50 Dose: 20 mg Documented By: [id number] Discontinued Medications Albuterol (Albut/Ipratrop 3mg/0.5mg Neb 3 Ml Vial) 12 ml NEB ONE ONE; Protocol Stop: 04/30/22 19:04 Last Admin: 04/30/22 20:03 Dose: 12 ml Documented By: JUANA Dexamethasone Sodium Phosphate (DexamethasonePf 10 Mg/Ml Vial) 10 mg IV NOW ONE Stop: 04/30/22 19:04 Last Admin: 04/30/22 19:20 Dose: 10 mg Documented By: NASRA Sodium Chloride (Nss 1000ml) 1,000 mls @ 999 mls/hr IV .Q1H1M [facility] Stop: 04/30/22 21:00 Last Infusion: 04/30/22 20:46 Dose: 0 mls/hr Documented By: Admin: 04/30/22 20:11 Dose: 999 mls/hr Documented By: Infusion: 04/30/22 20:11 Dose: 0 mls/hr Documented By: Admin: 04/30/22 19:09 Dose: 999 mls/hr Documented By: NASRA Cefepime HCl (Maxipime) 2,000 mg in 20 mls @ 5 mls/min IV NOW STA; Protocol Stop: 04/30/22 19:01 Last Admin: 04/30/22 19:19 Dose: 5 mls/min Documented By: NASRA Acetaminophen (Ofirmev) 1,000 mg in 100 mls @ 400 mls/hr IV NOW STA Stop: 04/30/22 19:35 Last Infusion: 04/30/22 20:46 Dose: 0 mls/hr Documented By: Admin: 04/30/22 20:20 Dose: 400 mls/hr Documented By: NASRA Magnesium Sulfate/Dextrose (Magnesium Sulfate / D5w) 1 gm in 100 mls @ 50 mls/hr IV Q2H [facility] Stop: 05/01/22 01:44 Last Infusion: 05/01/22 00:42 Dose: 0 mls/hr Documented By: Admin: 04/30/22 22:43 Dose: 50 mls/hr Documented By: Infusion: 04/30/22 22:43 Dose: 50 mls/hr Documented By: Admin: 04/30/22 21:35 Dose: 50 mls/hr Documented By: NSARA Piperacillin Sod/Tazobactam Sod (Zosyn) 4.5 gm in 120 mls @ 240 mls/hr IV NOW ONE Stop: 04/30/22 22:17 Last Infusion: 05/01/22 01:12 Dose: 0 mls/hr Documented By: Admin: 05/01/22 00:37 Dose: 240 mls/hr Documented By: SANDY Insulin Aspart (Insulin Aspart Per Unit) 0 units SC ACHS [facility] Stop: 05/31/22 00:23 Last Admin: 05/01/22 01:17 Dose: 11 units Documented By: SANDY Co-signed By: SHANNAN Insulin Glargine (Lantus Per Unit Charge) 15 units SQ HS STA Stop: 04/30/22 21:52 Last Admin: 04/30/22 23:28 Dose: 15 units Documented By: Co-signed By: THEA Insulin Glargine (Lantus Per Unit Charge) 10 units SQ NOW STA Stop: 05/01/22 01:06 Last Admin: 05/01/22 01:19 Dose: 10 units Documented By: ARR Co-signed By: SHANNAN Ioversol (Optiray 320 500ml) 102 ml IV ONCE ONE Stop: 04/30/22 22:38 Last Admin: 04/30/22 22:37 Dose: 102 ml Documented By: LY Labetalol HCl (Labetalol Hcl Iv 5 Mg/Ml 20ml) 10 mg IV NOW STA Stop: 04/30/22 20:35 Last Admin: 04/30/22 21:15 Dose: 10 mg Documented By: NASRA Co-signed By: GAGAN Potassium Chloride (Potassium Chloride Pwd 20 Meq Pack) 40 meq PO NOW STA Stop: 04/30/22 21:52 Last Admin: 04/30/22 22:44 Dose: 40 meq Documented By: NASRA Imaging Data Radiologist's Impression: Chest X-Ray 04/30/22 21:16 SINGLE VIEW CHEST CLINICAL HISTORY: Dyspnea. FINDINGS: An AP, portable, upright chest radiograph is compared to study dated 04/30/2022 and correlated with chest CT dated 04/27/2022. The patient is status post midline sternotomy. The heart is mildly enlarged. The pulmonary vasculature is not congested. Right basilar consolidation is again noted. Mild opacities are seen at the left lung base. No large pleural effusion or pneumothorax is identified. The bony thorax is grossly intact. IMPRESSION: Bibasilar consolidation, similar to today's earlier examination. ACT 112: Negative or not required by law. Electronically signed by: Seamus Holt M.D. 05/01/2022 8:34 AM Chest CTA 04/30/22 21:48 CT ANGIOGRAPHY OF THE CHEST, PULMONARY EMBOLUS PROTOCOL CLINICAL HISTORY: Shortness of breath. Chest pain. COMPARISON STUDY: Chest CT April 27, 2022 and chest radiograph April 30, 2022. TECHNIQUE: Following IV administration of 102 mL of Optiray, helical axial images of the chest were obtained utilizing the pulmonary embolus protocol. Maximal intensity projections and sagittal and coronal reformats were viewed on an independent 3D workstation. IV contrast was administered without complication. Automated exposure control was utilized for the study. A dose lowering technique was utilized adhering to the principles of ALARA. CT DOSE: 588.50 mGy.cm FINDINGS: No pulmonary emboli are identified. There is no thoracic aortic dissection. Size of the heart is normal. Mildly enlarged subcarinal and right hilar lymph nodes have slightly increased in size since CT of April 27, 2022. No pneumothorax or pleural effusion is present. Consolidation within the right middle and right lower lobes has mildly improved. Linear left lower lobe op acities are noted. There is no cavitation. Central airways are patent. IMPRESSION: 1. No pulmonary emboli identified. 2. Slight improvement in right middle lobe and right lower lobe pneumonia since prior chest CT. 3. Mild increase in subcarinal and right hilar lymphadenopathy which is likely r eactive. ACT 112: Negative or not required by law. Electronically signed by: Nicho Cuellar M.D. 05/01/2022 10:01 AM Discharge Plan Visit Data Chief Complaint: Shortness of Breath/Dyspnea Stated Complaint: SHORTNESS OF BREATH ED Provider: Reggie Melara Discharge Problem: Acute hypoxemic respiratory failure, Right lower lobe pneumonia, Adenovirus infection, Substernal chest pain Patient Disposition: Admitted As Inpatient Discharge Instructions Interventions: ED Discharge Assessment Last Done: 05/01/22 00:28 : Right lower lobe pneumonia Qualifiers: Pneumonia type: due to unspecified organism Qualified Code(s): J18.9 - Pneumonia, unspecified organism
[2022-04-30] MEDS: SODIUM CHLORIDE 0.9% 1000ML 1,000 ML IV SCH ×2 (19:09→20:11)
[2022-04-30] MEDS ORDERED: ACETAMINOPHEN 1,000 MG/100 ML VIAL IV STA (19:21)
[2022-04-30 19:29] LABS: Basophils # (auto) 0.07 K/uL (0-0.2); Basophils % (auto) 0.8 %; Eosinophils # (auto) 0.21 K/uL (0-0.50); Eosinophils % (auto) 2.5 %; Hematocrit (blood only) 39.5 % (34.1-44.9); Hemoglobin 13.9 g/dl (12.0-16.0); Immature Granulocytes % (auto) 1.2 %; Lymphocytes # (auto) 1.42 K/uL (1.2-3.4); Mean Corpuscular Hemoglobin 29.6 pg (25.0-34.0); Mean Corpuscular Hgb Conc 35.2 g/dL (32.0-36.0); Mean Corpuscular Volume 84.2 fL (80.0-100.0); Mean Platelet Volume 10.4 fL (9.4-12.3); Monocytes % (auto) 8.4 %; Neutrophils # (auto) 5.85 K/uL (1.4-6.5); Neutrophils % (auto) 70.1 %; Platelet Count 299 K/uL (130-400); RDW Coefficient of Variation 11.9 % (11.5-14.5); RDW Standard Deviation 35.8 fL (36.4-46.3); Red Blood Count 4.69 M/uL (3.93-5.22); White Blood Count 8.35 K/ul (4.8-10.8)
--- NOTE | 2022-04-30 19:54 | XRay Report ---
XR chest 1V portable HISTORY: Sepsis COMPARISON: Chest 04/27/2022. FINDINGS: Right lower lobe airspace opacities persist consistent with a pneumonia. The left lung appe ars clear. No pneumothorax. No pleural fusions. The cardiac silhouette remains mildly enlarged. There are poststernotomy changes. IMPRESSION: No change in the right lower lobe airspace opacities consistent with a pneumonia. ACT 112: Negative or not required by law. Electronically signed by: Alexander Vogel M.D. 04/30/2022 7:53 PM
[2022-04-30 19:56] LABS: Albumin Level 3.9 gm/dl (3.4-5.0); BUN Creatinine Ratio 19.7 (10-20); Bilirubin Direct 0.1 mg/dl (0-0.2); Bilirubin,Total 0.5 mg/dl (0.2-1.0); Calcium 9.5 mg/dl (8.5-10.1); Creatinine Clr Calc Pharmacy 118.3 ml/min; Est GFR (African American) 122.6 ml/min; Est GFR (Non-African American) 105.8 ml/min; Magnesium 1.7 mg/dl (1.7-2.4); Potassium 3.7 mmol/L (3.5-5.1); Total Protein 7.7 gm/dl (6.0-8.3); Troponin I High Sensitivity 3.7 pg/ml (0-14)
[2022-04-30 20:27] LABS: Bordetella parapertussis PCR Not Detected (NotDetected); Bordetella pertussis PCR Not Detected (NotDetected); Chlamydia pneumoniae PCR Not Detected (NotDetected); Coronavirus 229E PCR Not Detected (NotDetected); Coronavirus CoV-2 (COVID19)PCR Not Detected (NotDetected); Coronavirus HKU1 PCR Not Detected (NotDetected); Coronavirus NL63 PCR Not Detected (NotDetected); Coronavirus OC43PCR Not Detected (NotDetected); Human Metapneumovirus PCR Not Detected (NotDetected); Influenza A PCR Not Detected (NotDetected); Influenza B PCR Not Detected (NotDetected); Mycoplasma pneumoniae PCR Not Detected (NotDetected); Parainfluenza Virus 1 PCR Not Detected (NotDetected); Parainfluenza Virus 2 PCR Not Detected (NotDetected); Parainfluenza Virus 3 PCR Not Detected (NotDetected); Parainfluenza Virus 4 PCR Not Detected (NotDetected); Respiratory Syncytial VirusPCR Not Detected (NotDetected); Rhinovirus/Enterovirus PCR Not Detected (NotDetected)
[2022-04-30] MEDS ORDERED: LABETALOL HCL IV 5 MG/ML 20ML IV STA (20:34)
[2022-04-30 20:39] LABS: Adenovirus PCR DETECTED (NotDetected)
[2022-04-30] MEDS: MAGNESIUM SULFATE / D5W 1 GM/100 ML BAG IV SCH ×2 (21:35→22:43)
[2022-04-30] MEDS ORDERED: PIPERACILLIN/TAZOBACTAM 4.5 GM/120 ML BAG IV ONE (21:48)
[2022-04-30] MEDS ORDERED: LANTUS PER UNIT CHARGE SQ STA (21:51)
[2022-04-30] MEDS ORDERED: POTASSIUM CHLORIDE PWD 20 MEQ PACK PO STA (21:51)
--- NOTE | 2022-04-30 21:53 | History & Physical Report ---
Date of Service April 30, 2022 Assessment & Plan (1) Acute hypoxemic respiratory failure: Plan: Secondary to community-acquired bronchopneumonia, possible aspiration given vomiting history and multilobar involvement on imaging Patient positive for adenovirus infection. Failed outpatient treatment Severe sepsis SIRS plus hypoxemia secondary to above ASD status post surgery hypertension, slightly elevated secondary discomfort DM2 on oral medications, patient markedly hyperglycemic, no hemoglobin A1c on file Supplemental O2 Baseline ABG CS, Zosyn Nebs RTC, prednisone course given bronchospasm resulting in hypoxemia Pulmonary consult if without improvement Basal bolus insulin, ISS BG goal 1 10-1 40, carb count coverage, check hemoglobin A1c DVT prophylaxis per Lovenox subcu Full code Total critical care time was 40 minutes. Text document was generated using [employer] voice recognition software. It may contain grammatical or spelling errors. Kindly contact undersigned for clarification of any documentation item in question. History of Present Illness Chief Complaint: Worsening cough, shortness of breath Primary Care Provider: Melissa Washington PA-C History obtained from patient and records. Medical history significant for ASD status post surgery, hypertension, hyperlipidemia, DM2 on oral medications. Last confinement December 2014 for sepsis secondary to community-acquired pneumonia. 1 week history of fever, chills followed by cough later productive of junky yellow sputum. Chest pain from coughing and body aches. Vomiting with coughing symptoms. No abdominal pain, no diarrhea. 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 Patient completed COVID-19 vaccination. Patient seen at the ER days ago. CT chest multifocal airspace consolidation right middle and right lower lobes. No PE. Patient discharged on cefdinir and doxycycline course. Patient return to ER for worsening respiratory symptoms along with pleuritic chest pain. O2 sats 80s at 1 point during ER stay. Decadron, cefepime, and neb treatment administered at the ER. Medical History as above Surgical History : ASD secundum repair, BTL, section Family History : Asthma, breast cancer, DM, heart disease Personal/Social history : Non-smoker, no EtOH intake, school employee Allergies Allergy/AdvReac Type Severity Reaction Status Date / Time No Known Allergies Allergy Verified 04/30/22 19:45 Home Medications Medication Instructions Recorded Confirmed Type albuterol sulfate 90 mcg/actuation 2 inh inhalation Q6H #18 grams 04/27/22 04/30/22 Rx aerosol inhaler cefdinir 300 mg capsule 300 mg PO BID 10 days #20 caps 04/27/22 04/30/22 Rx doxycycline hyclate 100 mg tablet 100 mg PO BID 10 days #20 tabs 04/27/22 04/30/22 Rx lisinopril 10 1 tab PO DAILY 04/27/22 04/30/22 History mg-hydrochlorothiazide 12.5 mg tablet metformin 500 mg tablet,extended 1,000 mg PO BID 04/27/22 04/30/22 History release 24 hr Past Med/Surg History Medical History Diabetes mellitus Pneumonia Social History Smoking Status: Never smoker Preferred Language: Sammarinese Feels Safe at Home: Yes Review of Systems Review of Systems: As per HPI, all other systems reviewed and negative Physical Exam Physical Exam: GENERAL: uncomfortable, obese, respiratory distress SKIN: Normal color, warm HEENT: [place] palpebral conjunctivae, no ptosis, dry buccal mucosa, O2 mask in place NECK : Supple, short neck, no tenderness CHEST : Decreased breath sounds, occasional expiratory wheezes , no tenderness HEART : Tachycardic , no obvious murmurs ABDOMEN: Some distention, nontender EXTREMITIES : No LE swelling/tenderness, no other conspicuous deformities noted NEUROLOGIC : Coherent, no facial asymmetry, no other gross focality Results & Data Results & Data ([facility]) Vital Signs (Past 12 Hours) Vital Signs Temp Pulse Pulse Resp BP BP Pulse Ox 04/30/22 21:40 103 H 30 H 94 04/30/22 21:30 95 H 17 97 04/30/22 21:30 154/84 H 04/30/22 21:20 110 H 25 H 95 04/30/22 21:15 159/99 H 04/30/22 21:15 97 H 19 93 04/30/22 21:12 99 H 32 H 91 04/30/22 21:12 152/102 H 04/30/22 21:10 117 H 25 H 91 04/30/22 21:06 120 H 30 H 91 04/30/22 21:06 174/97 H 04/30/22 21:00 120 H 27 H 90 04/30/22 21:00 205/134 H 04/30/22 20:50 119 H 36 H 96 04/30/22 21:28 26 H 94 04/30/22 21:15 113 H 28 H 159/99 H 88 L 04/30/22 20:45 120 H 20 96 04/30/22 20:45 190/120 H 04/30/22 20:40 113 H 20 96 04/30/22 20:30 113 H 22 96 04/30/22 20:30 169/99 H 04/30/22 20:20 104 H 19 100 04/30/22 20:20 174/112 H 04/30/22 20:15 182/107 H 04/30/22 20:15 105 H 23 90 04/30/22 20:10 99 H 16 100 04/30/22 20:00 96 H 24 98 04/30/22 20:00 184/117 H 04/30/22 19:50 94 H 21 95 04/30/22 19:45 175/110 H 04/30/22 19:45 111 H 19 90 04/30/22 19:40 108 H 24 97 04/30/22 19:30 104 H 20 04/30/22 19:20 98 H 12 95 04/30/22 19:15 159/105 H 04/30/22 19:15 107 H 24 91 04/30/22 19:10 105 H 33 H 94 04/30/22 19:03 179/113 H 04/30/22 19:03 108 H 32 H 94 04/30/22 19:00 112 H 18 94 04/30/22 18:57 118 H 30 H 95 04/30/22 20:00 101 H 20 99 04/30/22 19:06 107 H 26 H 95 04/30/22 19:03 107 H 24 179/113 H 93 04/30/22 19:03 93 04/30/22 18:44 36.5 C 120 H 18 159/102 H 93 O2 Del Method O2 Flow Rate 04/30/22 21:40 04/30/22 21:30 04/30/22 21:30 04/30/22 21:20 04/30/22 21:15 04/30/22 21:15 04/30/22 21:12 04/30/22 21:12 04/30/22 21:10 04/30/22 21:06 04/30/22 21:06 04/30/22 21:00 04/30/22 21:00 04/30/22 20:50 04/30/22 21:28 Oxymask 15 04/30/22 21:15 Room Air 04/30/22 20:45 04/30/22 20:45 04/30/22 20:40 04/30/22 20:30 04/30/22 20:30 04/30/22 20:20 04/30/22 20:20 04/30/22 20:15 04/30/22 20:15 04/30/22 20:10 04/30/22 20:00 04/30/22 20:00 04/30/22 19:50 04/30/22 19:45 04/30/22 19:45 04/30/22 19:40 04/30/22 19:30 04/30/22 19:20 04/30/22 19:15 04/30/22 19:15 04/30/22 19:10 04/30/22 19:03 04/30/22 19:03 04/30/22 19:00 04/30/22 18:57 04/30/22 20:00 Room Air 04/30/22 19:06 Room Air 04/30/22 19:03 Room Air 04/30/22 19:03 Room Air 04/30/22 18:44 Room Air Laboratory Results Laboratory Results WBC 8.35 K/ul (4.8-10.8) 04/30/22 19:16 RBC 4.69 M/uL (3.93-5.22) 04/30/22 19:16 Hgb 13.9 g/dl (12.0-16.0) 04/30/22 19:16 Hct 39.5 % (34.1-44.9) 04/30/22 19:16 MCV 84.2 fL (80.0-100.0) 04/30/22 19:16 MCH 29.6 pg (25.0-34.0) 04/30/22 19:16 MCHC 35.2 g/dL (32.0-36.0) 04/30/22 19:16 RDW Std Deviation 35.8 fL (36.4-46.3) L 04/30/22 19:16 RDW Coeff of [place] 11.9 % (11.5-14.5) 04/30/22 19:16 Plt Count 299 K/uL (130-400) 04/30/22 19:16 MPV 10.4 fL (9.4-12.3) 04/30/22 19:16 Immature Gran % (Auto) 1.2 % 04/30/22 19:16 Neut % (Auto) 70.1 % 04/30/22 19:16 Lymph % (Auto) 17.0 % 04/30/22 19:16 [place] % (Auto) 8.4 % 04/30/22 19:16 Eos % (Auto) 2.5 % 04/30/22 19:16 Baso % (Auto) 0.8 % 04/30/22 19:16 Neut # (Auto) 5.85 K/uL (1.4-6.5) 04/30/22 19:16 Lymph # (Auto) 1.42 K/uL (1.2-3.4) 04/30/22 19:16 [place] # (Auto) 0.70 K/uL (0.24-0.82) 04/30/22 19:16 Eos # (Auto) 0.21 K/uL (0-0.50) 04/30/22 19:16 Baso # (Auto) 0.07 K/uL (0-0.2) 04/30/22 19:16 Immature Gran # (Auto) 0.10 K/uL (0.00-0.02) H 04/30/22 19:16 Sodium 135 mmol/L (136-145) L 04/30/22 19:16 Potassium 3.7 mmol/L (3.5-5.1) 04/30/22 19:16 Chloride 98 mmol/L (98-107) 04/30/22 19:16 Carbon Dioxide 25 mmol/L (21-32) 04/30/22 19:16 Anion Gap 12 (3-11) H 04/30/22 19:16 BUN 14 mg/dl (6-23) 04/30/22 19:16 Creatinine 0.71 mg/dl (0.6-1.2) 04/30/22 19:16 Est Cr Clr Drug Dosing 118.3 ml/min 04/30/22 19:16 Est GFR ( Amer) 122.6 ml/min 04/30/22 19:16 Est GFR (Non-Af Amer) 105.8 ml/min 04/30/22 19:16 BUN/Creatinine Ratio 19.7 (10-20) 04/30/22 19:16 Glucose 270 mg/dl (70-99(Fasting)) H 04/30/22 19:16 Lactate 1.5 mmol/L (0.4-2.0) 04/30/22 19:16 Calcium 9.5 mg/dl (8.5-10.1) 04/30/22 19:16 Magnesium 1.7 mg/dl (1.7-2.4) 04/30/22 19:16 Total Bilirubin 0.5 mg/dl (0.2-1.0) 04/30/22 19:16 Direct Bilirubin 0.1 mg/dl (0-0.2) 04/30/22 19:16 AST 24 U/L (13-39) 04/30/22 19:16 ALT 25 U/L (7-52) 04/30/22 19:16 Alkaline Phosphatase 66 U/L (34-104) 04/30/22 19:16 Troponin I High Sens 3.7 pg/ml (0-14) 04/30/22 19:16 Total Protein 7.7 gm/dl (6.0-8.3) 04/30/22 19:16 Albumin 3.9 gm/dl (3.4-5.0) 04/30/22 19:16 Procalcitonin 0.10 ng/ml (0-0.5) 04/30/22 19:16 Adenovirus (PCR) DETECTED (NotDetected) A* 04/30/22 19:28 B. pertussis DNA (PCR) Not Detected (NotDetected) 04/30/22 19:28 B.parapertussis DNA PCR Not Detected (NotDetected) 04/30/22 19:28 C. pneumoniae DNA (PCR) Not Detected (NotDetected) 04/30/22 19:28 Coronavirus OC43 (PCR) Not Detected (NotDetected) 04/30/22 19:28 Coronavirus HKU1 (PCR) Not Detected (NotDetected) 04/30/22 19:28 Coronavirus 229E (PCR) Not Detected (NotDetected) 04/30/22 19:28 SARS-CoV-2 (PCR) Not Detected (NotDetected) 04/30/22 19:28 Coronavirus NL63 (PCR) Not Detected (NotDetected) 04/30/22 19:28 Human Metapneumovir PCR Not Detected (NotDetected) 04/30/22 19:28 Influenza Type A (PCR) Not Detected (NotDetected) 04/30/22 19:28 Influenza Type B (PCR) Not Detected (NotDetected) 04/30/22 19:28 M. pneumoniae (PCR) Not Detected (NotDetected) 04/30/22 19:28 Parainfluenza 1 (PCR) Not Detected (NotDetected) 04/30/22 19:28 Parainfluenza 2 (PCR) Not Detected (NotDetected) 04/30/22 19:28 Parainfluenza 3 (PCR) Not Detected (NotDetected) 04/30/22 19:28 Parainfluenza 4 (PCR) Not Detected (NotDetected) 04/30/22 19:28 RSV (PCR) Not Detected (NotDetected) 04/30/22 19:28 Entero/Rhino (PCR) Not Detected (NotDetected) 04/30/22 19:[address] chest initial read: Comparison is made to a prior examination dated 04/27/22 There is fair opacification of the pulmonary arterial tree, no pulmonaryarterial filling defect is seen. Since the prior examination 3 days prior, there has been interval improvement in multifocal airspace consolidations. No large effusion or pneumothorax. EKG as per my interpretation : Rate 110, sinus tachycardia, normal axis. T wave abnormalities septal leads
[2022-04-30 22:08] LABS: Base Excess ABG -3.3 mEq/L (-9-1.8); HCO3 ABG 20 mmol/L (19-24); Oxygen Saturation ABG 98.6 % (90-95); PCO2 ABG 30 mmHg (35-46); PO2 ABG 104 mmHg (80-95); pH ABG 7.43 (7.35-7.45)
[2022-04-30 22:10] LABS: Allen Test Pos (Pos)
[2022-04-30] MEDS ORDERED: OPTIRAY 320 500ml IV ONE (22:37)
[2022-05-01] MEDS ORDERED: GLUCAGON FOR INJ 1 MG VIAL SQ PRN (00:24)
[2022-05-01] MEDS ORDERED: INSULIN ASPART PER UNIT SC SCH (00:24)
[2022-05-01] MEDS ORDERED: DEXTROSE 50% 50 ML SYRINGE IV PRN (00:24)
[2022-05-01] MEDS ORDERED: GLUCOSE 40% GEL 15 GM TUBE PO PRN (00:24)
[2022-05-01] MEDS ORDERED: PROMETHAZINE HCL 12.5 MG in SODIUM CHLORIDE 0.9% 50 ML IV PRN (00:24)
[2022-05-01] MEDS ORDERED: ACETAMINOPHEN 325 MG TAB PO PRN (00:24)
[2022-05-01] MEDS ORDERED: CARBOHYDRATES FOR HYPOGLYCEMIA PO PRN (00:24)
[2022-05-01] MEDS ORDERED: GLUCOSE 10 TAB/TUBE PO PRN (00:24)
[2022-05-01] MEDS ORDERED: traMADol HCL 50 MG TABLET PO PRN (00:24)
[2022-05-01] MEDS ORDERED: XOPENEX/ATROVENT 1.25mg/0.5MG NEB COMBO NEB SCH (01:00)
[2022-05-01] MEDS ORDERED: LANTUS PER UNIT CHARGE SQ STA (01:05)
[2022-05-01] MEDS ORDERED: SODIUM CHLORIDE 0.9% 1000ML 1,000 ML IV ONE (01:37)
[2022-05-01] MEDS: IPRATROPIUM BROMIDE NEB SOLN 0.02% 2.5 ML VIAL INH SCH ×4 (01:52→19:31)
[2022-05-01] MEDS: LEVALBUTEROL 1.25MG/0.5ML NEB INH SCH ×4 (01:52→19:32)
[2022-05-01] MEDS: INSULIN ASPART PER UNIT SC SCH ×5 (04:19→21:10)
[2022-05-01 05:20] LABS: Basophils # (auto) 0.03 K/uL (0-0.2); Basophils % (auto) 0.3 %; Hematocrit (blood only) 36.2 % (34.1-44.9); Hemoglobin 12.6 g/dl (12.0-16.0); Immature Granulocytes # (auto) 0.17 K/uL (0.00-0.02); Lymphocytes # (auto) 0.92 K/uL (1.2-3.4); Lymphocytes % (auto) 10.7 %; Mean Corpuscular Hemoglobin 29.6 pg (25.0-34.0); Mean Corpuscular Hgb Conc 34.8 g/dL (32.0-36.0); Mean Platelet Volume 10.2 fL (9.4-12.3); Monocytes # (auto) 0.22 K/uL (0.24-0.82); Monocytes % (auto) 2.6 %; Neutrophils # (auto) 7.27 K/uL (1.4-6.5); Neutrophils % (auto) 84.4 %; Platelet Count 273 K/uL (130-400); RDW Coefficient of Variation 11.8 % (11.5-14.5); RDW Standard Deviation 36.3 fL (36.4-46.3); Red Blood Count 4.26 M/uL (3.93-5.22); White Blood Count 8.61 K/ul (4.8-10.8)
[2022-05-01] MEDS ORDERED: LANTUS PER UNIT CHARGE SQ SCH ×2 (05:40→09:00)
[2022-05-01 05:46] LABS: BUN Creatinine Ratio 20.3 (10-20); Calcium 8.6 mg/dl (8.5-10.1); Est GFR (African American) 131.9 ml/min; Est GFR (Non-African American) 113.8 ml/min; Potassium 4.1 mmol/L (3.5-5.1)
[2022-05-01] MEDS: PIPERACILLIN/TAZOBACTAM 4.5 GM in DEXTROSE 5% 100 ML IV SCH ×3 (06:04→22:47)
[2022-05-01 07:12] LABS: Estimated Average Glucose 220 mg/dl; Hemoglobin A1C 9.3 % (4.5-5.6)
--- NOTE | 2022-05-01 08:35 | XRay Report ---
SINGLE VIEW CHEST CLINICAL HISTORY: Dyspnea. FINDINGS: An AP, portable, upright chest radiograph is compared to study dated 04/30/2022 and correla bernard with chest CT dated 04/27/2022. The patient is status post midline sternotomy. The heart is mildl y enlarged. The pulmonary vasculature is not congested. Right basilar consolidation is again noted. M ild opacities are seen at the left lung base. No large pleural effusion or pneumothorax is identified . The bony thorax is grossly intact. IMPRESSION: Bibasilar consolidation, similar to today's earlier examination. ACT 112: Negative or not required by law. Electronically signed by: Seamus Holt M.D. 05/01/2022 8:34 AM
[2022-05-01] MEDS: lisinopril 10 MG TAB PO SCH (08:49)
[2022-05-01] MEDS: ENOXAPARIN INJ 40 MG/0.4 ML SYR SQ SCH (08:49)
[2022-05-01] MEDS: predniSONE 20 MG TAB PO SCH (08:50)
--- NOTE | 2022-05-01 10:03 | CT Scan Report ---
CT ANGIOGRAPHY OF THE CHEST, PULMONARY EMBOLUS PROTOCOL CLINICAL HISTORY: Shortness of breath. Chest pain. COMPARISON STUDY: Chest CT April 27, 2022 and chest radiograph April 30, 2022. TECHNIQUE: Following IV administration of 102 mL of Optiray, helical axial images of the chest were o btained utilizing the pulmonary embolus protocol. Maximal intensity projections and sagittal and cor onal reformats were viewed on an independent 3D workstation. IV contrast was administered without co mplication. Automated exposure control was utilized for the study. A dose lowering technique was ut ilized adhering to the principles of ALARA. CT DOSE: 588.50 mGy.cm FINDINGS: No pulmonary emboli are identified. There is no thoracic aortic dissection. Size of the he art is normal. Mildly enlarged subcarinal and right hilar lymph nodes have slightly increased in size since CT of April 27, 2022. No pneumothorax or pleural effusion is present. Consolidation within the right middle and right lower lobes has mildly improved. Linear left lower lobe opacities are note d. There is no cavitation. Central airways are patent. IMPRESSION: 1. No pulmonary emboli identified. 2. Slight improvement in right middle lobe and right lower lobe pneumonia since prior chest CT. 3. Mild increase in subcarinal and right hilar lymphadenopathy which is likely reactive. ACT 112: Negative or not required by law. Electronically signed by: Nicho Cuellar M.D. 05/01/2022 10:01 AM
--- NOTE | 2022-05-01 11:31 | Hospitalist Progress Note ---
Date of Service May 01, 2022 Assessment & Plan (1) Acute hypoxemic respiratory failure: Plan: Secondary to community-acquired bronchopneumonia, possible aspiration given vomiting history and multilobar involvement on imaging Patient positive for adenovirus infection. Failed outpatient treatment --CT chest: 1. No pulmonary emboli identified. 2. Slight improvement in right middle lobe and right lower lobe pneumonia since prior chest CT. 3. Mild increase in subcarinal and right hilar lymphadenopathy which is likely reactive. --Clinically gradually improved --Still remains on 2 L of oxygen via nasal cannula --Nasal MRSA: Negative -- Sputum culture: Pending Blood cultures: Pending --Continue IV Zosyn day #1 Add azithromycin day #1 --Continue nebs scheduled 4 times daily Continue prednisone 20 mg p.o. daily Possible severe sepsis SIRS plus hypoxemia secondary to above --Lactic acid normal --Given IV fluids -No leukocytosis, afebrile today --Monitor closely ASD status post surgery Hypertension -- BP elevated likely secondary to stress, steroids --Continue usual lisinopril -- As needed hydralazine 5 mg IV for systolic BP more than 160 DM2 -- on oral medications, patient markedly hyperglycemic, no hemoglobin A1c on file --A1c 9 --Blood glucose improving, continue insulin Lantus and insulin sliding DVT prophylaxis per Lovenox subcu Full code Disposition Anticipate discharge to home medically stable Admission and Anticipated Discharge Date Admission Date: April 30, 2022 Subjective ff up for BL pneumonia, hypoxic respiratory failure, etc seen resting in bed, comfortable On 2 L of nasal cannula Not in distress States that she feels improved compared to yesterday Still having some chest congestion, unable to expectorate phlegm No chest pain, palpitations, dizziness No fevers or chills No other symptoms Review of Systems Review of Systems: all noted and negative except for above Physical Exam Physical Exam: General- oriented x 3, not in distress, speaks in sentences with no effort or accessory muscle use Eyes- anicteric Neck- no JVD Lungs-positive rhonchi bilaterally, no wheezing Heart- normal rate, regular rhythm; no murmurs Abdomen- normal bowel sounds, nondistended, soft, nontender Extremities- no pretibial edema, no calf tenderness Neuro- alert, oriented x 3; no gross focal neurologic deficits Skin- warm & dry Results & Data Results & Data ([facility]) Vital Signs (Past 12 Hours) Vital Signs Temp Pulse Pulse Pulse Resp BP BP 05/01/22 08:00 05/01/22 06:56 78 18 05/01/22 06:25 36.8 C 90 18 150/97 H 05/01/22 04:06 36.8 C 97 H 18 145/86 H 05/01/22 00:27 97 H 05/01/22 01:52 95 H 18 05/01/22 00:30 05/01/22 00:30 36.9 C 89 22 151/97 H 05/01/22 00:24 05/01/22 00:28 05/01/22 00:00 88 28 H 155/98 H Pulse Ox Pulse Ox O2 Del Method O2 Del Method O2 Flow Rate O2 Flow Rate 05/01/22 08:00 High Flow Nasal Cannula 6 05/01/22 06:56 95 Nasal Cannula 3 05/01/22 06:25 96 Nasal Cannula 7 05/01/22 04:06 97 Nasal Cannula 8 05/01/22 00:27 05/01/22 01:52 97 Oxymask 11 05/01/22 00:30 Oxymask 15 05/01/22 00:30 97 Oxymask 15 05/01/22 00:24 97 Oxymask 15 05/01/22 00:28 Oxymask 15 05/01/22 00:00 92 Oxymask all noted and reviewed including below
[2022-05-01] MEDS ORDERED: AZITHROMYCIN 250 MG TAB PO ONE (11:45)
[2022-05-01] MEDS ORDERED: hydrALAZINE HCL 20 MG/ML VIAL IV PRN (11:46)
[2022-05-01] MEDS: SODIUM CHLOR 7% 4 ML NEB NEB SCH ×2 (13:13→19:31)
[2022-05-01] MEDS: LANTUS PER UNIT CHARGE SQ SCH (21:11)
[2022-05-02] MEDS: LEVALBUTEROL 1.25MG/0.5ML NEB INH SCH ×4 (00:16→19:24)
[2022-05-02] MEDS: IPRATROPIUM BROMIDE NEB SOLN 0.02% 2.5 ML VIAL INH SCH ×4 (00:17→19:24)
[2022-05-02] MEDS: PIPERACILLIN/TAZOBACTAM 4.5 GM in DEXTROSE 5% 100 ML IV SCH ×3 (06:22→20:32)
[2022-05-02] MEDS: SODIUM CHLOR 7% 4 ML NEB NEB SCH (07:17)
[2022-05-02] MEDS: predniSONE 20 MG TAB PO SCH (08:47)
[2022-05-02] MEDS: lisinopril 10 MG TAB PO SCH (08:47)
[2022-05-02] MEDS: AZITHROMYCIN 250 MG TAB PO SCH (08:47)
[2022-05-02] MEDS: INSULIN ASPART PER UNIT SC SCH ×4 (08:51→20:23)
[2022-05-02] MEDS: LANTUS PER UNIT CHARGE SQ SCH ×2 (08:51→20:24)
[2022-05-02] MEDS: ENOXAPARIN INJ 40 MG/0.4 ML SYR SQ SCH (08:52)
[2022-05-02] MEDS: guaiFENesin 600 MG TABCR PO SCH ×2 (12:48→20:19)
[2022-05-02] MEDS: ACETYLCYSTEINE 10% INHAL SOLN 4 ML **DISPENSED BY RESP. INH SCH ×2 (13:21→19:24)
--- NOTE | 2022-05-02 14:32 | Hospitalist Progress Note ---
Date of Service May 02, 2022 Assessment & Plan (1) Acute hypoxemic respiratory failure: Plan: Secondary to community-acquired bronchopneumonia, possible aspiration given vomiting history and multilobar involvement on imaging Patient positive for adenovirus infection. Failed outpatient treatment --CT chest: 1. No pulmonary emboli identified. 2. Slight improvement in right middle lobe and right lower lobe pneumonia since prior chest CT. 3. Mild increase in subcarinal and right hilar lymphadenopathy which is likely reactive. Improving gradually Weaned off oxygen supplement --Nasal MRSA: Negative -- Sputum culture: Pending collection Blood cultures: Negative so far --Continue IV Zosyn and azithromycin day #2 --Continue nebs scheduled 4 times daily Continue prednisone 20 mg p.o. daily Change hypertonic saline to Mucomyst twice daily Add Mucinex twice daily Possible severe sepsis SIRS plus hypoxemia secondary to above --Lactic acid normal --Given IV fluids -No leukocytosis, afebrile today --Monitor closely ASD status post surgery Hypertension -- BP elevated likely secondary to stress, steroids --Continue usual lisinopril -- As needed hydralazine 5 mg IV for systolic BP more than 160 DM2 -- on oral medications, patient markedly hyperglycemic, no hemoglobin A1c on file --A1c 9 --Blood glucose improving, continue insulin Lantus and insulin sliding DVT prophylaxis per Lovenox subcu Full code Disposition Anticipate discharge to home medically stable, hopefully by tomorrow plan of care discussed with patient in detail and at length all questions answered she is understanding, agreeable, comfortable with the plan of care Admission and Anticipated Discharge Date Admission Date: April 30, 2022 Subjective ff up for bilateral pneumonia with hypoxia, etc. Seen resting in bed, comfortable, not in distress States she feels improved compared to yesterday but still having some chest congestion, dyspnea with ambulating in the room Still having some difficulty with sputum expectoration No fevers or chills, headache, dizziness, abdominal pain, nausea vomiting No other symptom Review of Systems Review of Systems: all noted and negative except for above Physical Exam Physical Exam: General- oriented x 3, not in distress, speaks in sentences with no effort or accessory muscle use Eyes- anicteric Neck- no JVD Lungs-positive mild rhonchi on the right middle to lower lung field, no wheezing Heart- normal rate, regular rhythm; no murmurs Abdomen- normal bowel sounds, nondistended, soft, nontender Extremities- no pretibial edema, no calf tenderness Neuro- alert, oriented x 3; no gross focal neurologic deficits Skin- warm & dry Results & Data Results & Data ([facility]) Vital Signs (Past 12 Hours) Vital Signs Temp Pulse Resp BP Pulse Ox O2 Del Method 05/02/22 08:00 Room Air 05/02/22 13:21 101 H 18 94 Room Air 05/02/22 11:28 36.3 C L 85 18 138/99 92 Room Air 05/02/22 07:10 36.7 C 88 18 137/96 98 Room Air 05/02/22 07:18 103 H 18 94 Room Air 05/02/22 03:28 36.7 C 82 11 L 132/82 92 Room Air all noted and reviewed including below
[2022-05-03] MEDS: LEVALBUTEROL 1.25MG/0.5ML NEB INH SCH ×3 (00:21→14:06)
[2022-05-03] MEDS: IPRATROPIUM BROMIDE NEB SOLN 0.02% 2.5 ML VIAL INH SCH ×3 (00:21→14:06)
[2022-05-03] MEDS: PIPERACILLIN/TAZOBACTAM 4.5 GM in DEXTROSE 5% 100 ML IV SCH (06:02)
--- NOTE | 2022-05-03 06:06 | Electrocardiogram Report ---
Test Reason : Blood Pressure : / mmHG Vent. Rate : 112 BPM Atrial Rate : 112 BPM P-R Int : 128 ms QRS Dur : 080 ms QT Int : 330 ms P-R-T Axes : 043 057 077 degrees QTc Int : 450 ms Sinus tachycardia Possible Septal infarct Inferior ST elevation Abnormal ECG When compared with ECG of 01-JAN-2015 06:38, Septal infarct is now Present ST elevation now present in Inferior leads Confirmed by Polo Blake ([id number]) on 05/03/2022 6:06:36 AM Referred By: REFERRED SELF Confirmed By:Polo Blake
--- NOTE | 2022-05-03 06:07 | Electrocardiogram Report ---
Test Reason : Blood Pressure : / mmHG Vent. Rate : 111 BPM Atrial Rate : 111 BPM P-R Int : 132 ms QRS Dur : 080 ms QT Int : 342 ms P-R-T Axes : 047 054 051 degrees QTc Int : 465 ms Sinus tachycardia Septal infarct (cited on or before 30-APR-2022) Abnormal ECG When compared with ECG of 30-APR-2022 19:01, ST less elevated in Inferior leads Confirmed by Polo Blake ([id number]) on 05/03/2022 6:07:08 AM Referred By: REFERRED SELF Confirmed By:Polo Blake
[2022-05-03] MEDS: ACETYLCYSTEINE 10% INHAL SOLN 4 ML **DISPENSED BY RESP. INH SCH (07:16)
[2022-05-03] MEDS: ENOXAPARIN INJ 40 MG/0.4 ML SYR SQ SCH (08:44)
[2022-05-03] MEDS: AZITHROMYCIN 250 MG TAB PO SCH (08:44)
[2022-05-03] MEDS: guaiFENesin 600 MG TABCR PO SCH (08:44)
[2022-05-03] MEDS: predniSONE 20 MG TAB PO SCH (08:45)
[2022-05-03] MEDS: lisinopril 10 MG TAB PO SCH (08:45)
[2022-05-03] MEDS: INSULIN ASPART PER UNIT SC SCH ×2 (08:45→13:37)
[2022-05-03] MEDS: LANTUS PER UNIT CHARGE SQ SCH (08:46)
--- NOTE | 2022-05-03 09:59 | Hospitalist Progress Note ---
Date of Service May 03, 2022 delayed entry date of service noted above Assessment & Plan (1) Acute hypoxemic respiratory failure: Plan: Secondary to Bilateral Pneumonia Failed outpatient treatment -- (+) Adenovirus --CT chest: 1. No pulmonary emboli identified. 2. Slight improvement in right middle lobe and right lower lobe pneumonia since prior chest CT. 3. Mild increase in subcarinal and right hilar lymphadenopathy which is likely reactive. patient improved gradually Weaned off oxygen supplement --Nasal MRSA: Negative -- Sputum culture: Pending collection Blood cultures: Negative --given 3 days of IV Zosyn and azithromycin nebs scheduled 4 times daily and Prednisone 20mg po daily Mucomyst twice daily, Mucinex twice daily -- discharge plan: Levaquin 500mg po daily x 7 days Prednisone 20mg po daily x 2 days Mucinex BID x 5 days Levalbuterol PRN Possible severe sepsis SIRS plus hypoxemia secondary to above --Lactic acid normal --Given IV fluids -No leukocytosis, afebrile ASD status post surgery Hypertension -- BP elevated likely secondary to stress, steroids -- improved -- Continue usual lisinopril -- As needed hydralazine 5 mg IV for systolic BP more than 160 DM2 -- on oral medications, patient markedly hyperglycemic, no hemoglobin A1c on file --A1c 9 --Blood glucose improved, given insulin Lantus and insulin sliding -- close outpatient ff up DVT prophylaxis per Lovenox subcu Full code Disposition d/c home ff up with PCP in 1 week plan of care discussed with patient in detail and at length all questions answered she is understanding, agreeable, comfortable with the plan of care Admission and Anticipated Discharge Date Admission Date: April 30, 2022 Subjective ff up for pneumonia, etc seen resting in bed, comfortable states she feels better overall breathing is better, less cough no chest pain, palpitations, dizziness no other symptoms Review of Systems Review of Systems: all noted and negative except for above Physical Exam Physical Exam: General- oriented x 3, not in distress, speaks in sentences with no effort or accessory muscle use Eyes- anicteric Neck- no JVD Lungs- clear breath sounds bilaterally, no rales/wheezes Heart- normal rate, regular rhythm; no murmurs Abdomen- normal bowel sounds, nondistended, soft, nontender Extremities- no pretibial edema, no calf tenderness Neuro- alert, oriented x 3; no gross focal neurologic deficits Skin- warm & dry Results & Data Results & Data ([facility]) Vital Signs (Past 12 Hours) Vital Signs Temp Pulse Pulse Resp BP BP Pulse Ox 05/03/22 08:03 36.5 C 80 17 148/95 H 97 05/03/22 07:17 87 16 96 05/02/22 22:19 77 05/03/22 04:27 05/03/22 00:00 05/03/22 03:15 36.5 C 78 18 129/84 95 05/02/22 22:55 36.5 C 73 20 128/77 94 Pulse Ox O2 Del Method O2 Del Method 05/03/22 08:03 Room Air 05/03/22 07:17 Room Air 05/02/22 22:19 05/03/22 04:27 Room Air 05/03/22 00:00 95 Room Air 05/03/22 03:15 Room Air 05/02/22 22:55 Room Air all noted and reviewed including below
--- NOTE | 2022-05-05 15:10 | Discharge Summary ---
Discharge Summary Date of Service May 05, 2022 delayed entry date of service noted 05/03/22 Notes For Next Care Provider Repeat Chest imaging in 3-4 weeks Medication Changes From Visit New: Levaquin 500mg po daily x 7 days Prednisone 20mg po daily x 2 days Mucinex BID x 5 days Levalbuterol PRN Admission HPI Per Admitting Provider History obtained from patient and records. Medical history significant for ASD status post surgery, hypertension, hyperlipidemia, DM2 on oral medications. Last confinement December 2014 for sepsis secondary to community-acquired pneumonia. 1 week history of fever, chills followed by cough later productive of junky yellow sputum. Chest pain from coughing and body aches. Vomiting with coughing symptoms. No abdominal pain, no diarrhea. 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 Patient completed COVID-19 vaccination. Patient seen at the ER days ago. CT chest multifocal airspace consolidation ri ght middle and right lower lobes. No PE. Patient discharged on cefdinir and doxycycline course. Patient return to ER for worsening respiratory symptoms along with pleuritic chest pain. O2 sats 80s at 1 point during ER stay. Decadron, cefepime, and neb treatment administered at the ER. Medical History as above Surgical History : ASD secundum repair, BTL, section Family History : Asthma, breast cancer, DM, heart disease Personal/Social history : Non-smoker, no EtOH intake, school employee Admission Exam Per Admitting Provider GENERAL: uncomfortable, obese, respiratory distress SKIN: Normal color, warm HEENT: [place] palpebral conjunctivae, no ptosis, dry buccal mucosa, O2 mask in place NECK : Supple, short neck, no tenderness CHEST : Decreased breath sounds, occasional expiratory wheezes , no tenderness HEART : Tachycardic , no obvious murmurs ABDOMEN: Some distention, nontender EXTREMITIES : No LE swelling/tenderness, no other conspicuous deformities noted NEUROLOGIC : Coherent, no facial asymmetry, no other gross focality Principal Dx & Hospital Course #1 = Principal Diagnosis (1) Acute hypoxemic respiratory failure: Secondary to Bilateral Pneumonia Failed outpatient treatment -- (+) Adenovirus --CT chest: 1. No pulmonary emboli identified. 2. Slight improvement in right middle lobe and right lower lobe pneumonia since prior chest CT. 3. Mild increase in subcarinal and right hilar lymphadenopathy which is likely reactive. patient improved gradually Weaned off oxygen supplement --Nasal MRSA: Negative -- Sputum culture: Pending collection Blood cultures: Negative --given 3 days of IV Zosyn and azithromycin nebs scheduled 4 times daily and Prednisone 20mg po daily Mucomyst twice daily, Mucinex twice daily -- discharge plan: Levaquin 500mg po daily x 7 days Prednisone 20mg po daily x 2 days Mucinex BID x 5 days Levalbuterol PRN Possible severe sepsis SIRS plus hypoxemia secondary to above --Lactic acid normal --Given IV fluids -No leukocytosis, afebrile ASD status post surgery Hypertension -- BP elevated likely secondary to stress, steroids -- improved -- Continue usual lisinopril -- As needed hydralazine 5 mg IV for systolic BP more than 160 DM2 -- on oral medications, patient markedly hyperglycemic, no hemoglobin A1c on file --A1c 9 --Blood glucose improved, given insulin Lantus and insulin sliding -- close outpatient ff up DVT prophylaxis per Lovenox subcu Full code Disposition d/c home ff up with PCP in 1 week plan of care discussed with patient in detail and at length all questions answered she is understanding, agreeable, comfortable with the plan of care Discharge Exam General- oriented x 3, not in distress, speaks in sentences with no effort or accessory muscle use Eyes- anicteric Neck- no JVD Lungs- clear breath sounds bilaterally, no rales/wheezes Heart- normal rate, regular rhythm; no murmurs Abdomen- normal bowel sounds, nondistended, soft, nontender Extremities- no pretibial edema, no calf tenderness Neuro- alert, oriented x 3; no gross focal neurologic deficits Skin- warm & dry Updated Medication List Medication Instructions Recorded Confirmed Type albuterol sulfate 90 mcg/actuation 2 inh inhalation Q6H #18 grams 04/27/22 04/30/22 Rx aerosol inhaler lisinopril 10 1 tab PO DAILY 04/27/22 04/30/22 History mg-hydrochlorothiazide 12.5 mg tablet metformin 500 mg tablet,extended 1,000 mg PO BID 04/27/22 04/30/22 History release 24 hr blood sugar diagnostic ([facility] [place] [employer]Touch #60 ea 05/03/22 Rx Verio test strips) blood-glucose meter (OneTouch #1 ea 05/03/22 Rx Verio Meter) guaifenesin 1,200 mg tablet, 1,200 mg PO BID 7 days #14 tabs 05/03/22 Rx extended release 12 hr (Mucinex) lancets 33 gauge (OneTouch Delica #100 ea 05/03/22 Rx Lancets) levalbuterol HCl 1.25 mg/0.5 mL 1.25 mg (0.5 mL) inhalation Q6R 05/03/22 Rx solution for nebulization PRN shortness of breath or wheezing #15 ea levofloxacin 500 mg tablet 500 mg PO DAILY 7 days #7 tabs 05/03/22 Rx Hospital Stay Data Consultations 04/30/22 21:07 ED Decision to Admit Stat Diagnostic Imagining Performed 04/30/22 21:48 CT angio chest PE protocol Urgent COMPARISON STUDY: Chest CT April 27, 2022 and chest radiograph April 30, 2022. TECHNIQUE: Following IV administration of 102 mL of Optiray, helical axial images of the chest were obtained utilizing the pulmonary embolus protocol. Maximal intensity projections and sagittal and coronal reformats were viewed on an independent 3D workstation. IV contrast was administered without complication. Automated exposure control was utilized for the study. A dose lowering technique was utilized adhering to the principles of ALARA. CT DOSE: 588.50 mGy.cm FINDINGS: No pulmonary emboli are identified. There is no thoracic aortic dissection. Size of the heart is normal. Mildly enlarged subcarinal and right hilar lymph nodes have slightly increased in size since CT of April 27, 2022. No pneumothorax or pleural effusion is present. Consolidation within the right middle and right lower lobes has mildly improved. Linear left lower lobe opacities are noted. There is no cavitation. Central airways are patent. IMPRESSION: 1. No pulmonary emboli identified. 2. Slight improvement in right middle lobe and right lower lobe pneumonia since prior chest CT. 3. Mild increase in subcarinal and right hilar lymphadenopathy which is likely reactive. ACT 112: Negative or not required by law. Pending Results Patient Have Any Pending Studies at Discharge: No Discharge Instructions Given to Patient (Per Discharging Provider) PLEASE REFER TO YOUR NEW MEDICATION LIST AND FOLLOW INSTRUCTIONS CAREFULLY. YOUR NEW MEDICATIONS INCLUDE: LEVAQUIN- antibiotic for pneumonia PREDNISONE- steroid to open airways MUCINEX- for cough LEVALBUTEROL- nebulizer treatment as needed for shortness of breath/wheezing PLEASE CALL YOUR PRIMARY CARE PHYSICIAN OR RETURN TO THE ER IF WITH WORSENING OF SYMPTOMS, INCLUDING worsening shortness of breath, cough, shortness of breath, fever/chills, etc FOLLOW UP WITH PRIMARY CARE PROVIDER IN 1 WEEK SCHEDULED ABOVE. Total Time Total Time Spent Total Time Spent (In Minutes): >30 minutes
== END 2022-05-03 14:45 | disposition home or self-care (01) | DRG 871 ==
LOC: ED 18:39 → 4W 21:55

== ENCOUNTER 2024-02-15 07:13 | Inpatient (IN) ==
--- OUTSIDE RECORDS SUMMARY | 2024-02-15 07:20 | External Medical Summary | Summary of Care ---
Author Name Unknown Organization [facility] Address [address] [place] [address] Phone [phone] Care Team Providers Care Home Specialist Name Role Phone Melissa Washington Primary Care Provider Encounter Details Date Type Department Care Team (Late st Contact Info) Description 12/31/2023 Telephone [facility], [place] [address] [facility] [place] [address] [id number] Melissa Washington CRNP [address] [place] [phone] Allergies Active Allergy Reactions Criticality Noted Date Comments No Known Drug Allergy 12/10/2000 documented as of this encounter (statuses as of 01/01/2024) Medications Medication Sig Dispensed Refills Start Date End Date Status Levalbuterol HCl 1.25 MG/0.5ML Inhalation Nebulization Solution Inhale 1.25 mg by mouth every 6 hours as needed. 05/03/2022 Active Albuterol Sulfate HFA 108 (90 Base) MCG/ACT Inhalation Aerosol Solution Inhale 2 Puffs by mouth every 6 hours as needed. 04/27/2022 Active Lisinopril-hydroCHLO ROthiazide 10-12.5 MG Oral TabletIndications:Ty pe 2 diabetes mellitus with hemoglobin A1c goal of less than 7.0% (HCC),HTN, goal below 130/80 Take 1 Tablet by mouth in the morning. 90 Tablet 3 08/25/2022 Active metFORMIN HCl ER 500 MG Oral Tablet Extended Release 24 Hour (Glucophage XR)Indications:Type 2 diabetes mellitus with hemoglobin A1c goal of less than 7.0% (HCC) Take 1 tab by mouth in the morning for 1 week, then increase to 2 tabs by mouth thereafter 180 Tablet 3 08/25/2022 Active documented as of this encounter (statuses as of 01/01/2024) Active Problems Problem Noted Date Diagnosed Date Family history of breast cancer in female 2022 Adenovirus pneumonia 05/10/2022 Type 2 diabetes mellitus wit h hemoglobin A1c goal of less than 7.0% 10/07/2021 HTN, goal below 130/80 10/07/2021 Hypertriglyceridemia 10/07/2021 delivery delivered 04/11/2011 Overview: C/sec x 2. Plan repeat by Dr Moran on 06/26/2011-paperwork received Pt is 28w5d . rhogam given 04/11/2011 Arabella Gould RN ICD-10 update of inactive term BMI 35-39 ISOLATED (SEE ACTUAL BMI) 11/22/2009 Overview: Per Obesity Protocol, #19 documented as of this encounter (statuses as of 01/01/2024) Resolved Problems Problem Noted Date Diagnosed Date Resolved Date Acute respiratory failure with hypoxemia 05/10/2022 08/25/2022 Abnormal maternal glucose to lerance, complicating , childbirth, or the puerperium, unspecified as to episode of care 04/16/2011 07/06/2011 Overview: 1 hr Glocola 140 --- needs 3hr GTT. Normal 3 hr GTT. Encounter for supervision of other normal 04/30/2006 12/03/2008 Overview: ICD-10 update of inactive term documented as of this encounter (statuses as of 01/01/2024) Immunizations Name Administration Dates Next Due Pneumococcal Conjugate Vaccine, 20-valent (Prevn ar20) 11/11/2021 Pneumococcal Polysaccharide PPV23 (Pneumovax) Seasonal Influenza, Split, IIV3, With Preserve, Inj 02/12/2015 TDAP (age 10 and older)(Boostrix) 12/07/2016 TDAP, Age 7 and older, IM (Adacel) 12/03/2008 documented as of this encounter Social History Tobacco Use Types Packs/Day Years Used Date Smoking Tobacco: Never Smokeless Tobacco: Never Alcohol Use Standard Drinks/Week Comments No 0 (1 standard drink = 0.6 oz pur e alcohol) Utilities Answer Date Recorded Do you have trouble paying y our heating, water, or electric bill? (Adult - for ages 18 years and over) Not on file 11/27/2023 Is your family able to pay t he heat, water, or electric bill? (Household - for ages 0-17 years) Not on file 11/27/2023 Does your family have access to good internet? (Household - for ages 0-17 years) Not on file 11/27/2023 Social Connections Answer Date Recorded How often do you feel lonely or isolated from those around you? (Adult - for ages 18 years and over) Not on file 11/27/2023 Sex and Gender Information Value Date Recorded Sex Assigned at Not on file Gender Identity Not on file Sexual Orientation Not on file Job Start Date Occupation Industry Not on file Not on file Not on file documented as of this encounter Miscellaneous Notes * Telephone Encounter - Batsheva King LPN - 01/01/2024 2:32 PM EDT Pt aware. * Telephone Encounter - Melissa Washington CRNP - 12/31/2023 12:41 PM EDT Please notify patient mammogram is normal. Boubacar, MSN, [facility] documented in this encounter Plan of Treatment Health Maintenance Due Date Last Done Comments Hepatitis C Screening 1999 Hepatitis B Vaccine (1 of 3 - 19+ 3-dose series) 2000 Lipid Panel 06/14/2007 06/14/2002 HPV/Co-Test 2011 Cervical Cancer Screening 12/21/2013 Pap Smear 12/21/2013 12/21/2010, 100 11/2008, 03/03/2008, Additional history exists Depression Screening 12/18/2017 12/18/2016 HbA1c 07/15/2022 01/12/2022, 10/07/2021 Albumin/Creatinine Ratio 10/07/2022 10/07/2021 Diabetic Foot Exam 11/11/2022 11/11/2021 GFR 01/12/2023 01/12/2022, 09/10, 10/17/2004, Additional history exists COVID-19 Vaccine ( season) 2023 Influenza Vaccine (FLU shot) (#1) 2024 02/12/2015 Diabetic Eye Exam 04/09/2024 04/09/2023, 10/07/2021 Mammogram 12/26/2024 12/27/2023, 10/2022, 10/07/2021 DTaP,Tdap,and Td Vaccines (3 - Td or Tdap) 12/07/2026 12/07/2016, 12/03/2008 MENINGOCOCCAL (MENACTRA/MENVEO) Aged Out 01/15/2002 No longer eligible based on patient's age to complete this topic Pneumococcal Vaccine: Pediatrics (0 to 5 Years) and At-Risk Patients (6 to 64 Years) Completed 11/11/2021, 01/06/2015 HPV (Gardasil) Vaccine Aged Out No lo nger eligible based on patient's age to complete this topic documented as of this encounter Medical Devices Not on filedocumented as of this encounter Advance Directives Documents on File Type Date Recorded Patient Warehouse Distribution Associate Expl anation Advance Directives and Living Will 12/14/2004 Power of Laundry Tub Maker 12/14/2004 * No Code Status (Latest Code Status on File) Date Activated Date Inactivated Comments 12/14/2004 12:58 PM 12/14/2004 12:58 PM Care Teams Home Specialist Relationship Specialty Start Date End Date Melissa Washington CRNP [address] [place] [phone] PCP - General Nurse Practitioner 12/18/23 documented as of this encounter
--- NOTE | 2024-02-15 07:30 | Emergency Department Note ---
Impression & Plan ST elevation (STEMI) myocardial infarction ADMIT ED Provider Note HPI: History obtained from patient. The patient is a 43-year-old female who presents the emergency department with a chief complaint of chest pain. Patient states that she developed substernal chest pain at about 5 AM. Patient states at times the pain feels that it is radiating up into the area of her left shoulder. Patient states the pain initially was moderate however it has become more severe over the past several hours. On arrival here to the ED the patient is hypertensive, she is otherwise alert and saturating well on room air. Patient rates her pain at a 9 out of 10. ROS: - Per HPI Differential Diagnosis: Acute coronary syndrome/ST elevation [place], pneumothorax, aortic dissection, pulmonary embolism, pericarditis, acid reflux/esophagitis, amongst other potential pathologies. *Outpatient medications and allergy history reviewed. PE: General: Alert, obese HEENT: Normocephalic, trachea midline Eyes: Extraocular eye movement is intact, no scleral erythema Pulmonary: Clear to auscultation bilaterally, no wheezing Cardio: Regular rate and rhythm GI: Abdomen is soft to palpation : No suprapubic tenderness MSK: No evidence of trauma or malformation of the extremities, no edema Skin: No evidence of rash Neuro: Alert, no focal deficits Psychiatric: Cooperative INDEPENDENT INTERPRETATIONS: subsurface augmentee elint operator: (As interpreted by myself): - An order was placed for continuous cardiac monitoring - Patient was noted to be in sinus rhythm with a rate of 75 EKG: (As interpreted by myself): Rate: 64 Rhythm: Normal sinus rhythm Intervals: Within normal limits ST changes: ST elevation is noted in leads III and aVF with reciprocal ST depression noted in lead I concerning for ST elevation myocardial infarction Time: 725 Chest x-ray: (As interpreted by myself): No acute process Interventions provided in ED: -IV morphine, IV Zofran, IV metoprolol, aspirin, IV fluid bolus Medical Decision Making: IV was established and lab work obtained, patient was placed on cardiac surgeon. EKG reviewed by myself shortly after the patient's arrival is concerning for ST elevation myocardial infarction. Heart alert was activated. Patient was given the above medications with good improvement in her pain. Patient was then evaluated at the bedside by interventional cardiology. Chest x-ray as reviewed by myself does not show any obvious evidence of widened mediastinum or aortic dissection. Patient was transferred to the cardiac catheterization lab in stable condition for further care. [facility] hospitalist service was consulted for admission. Consultants/Discussions held with other healthcare providers: -Interventional cardiology, Dr. Pires -Hospitalist, Dr. Sal Disposition discussion held by myself with: -Patient * CRITICAL CARE TIME: ( 37 ) minutes -Management of patient with ST elevation AZ presenting with chest pain and hypertension requiring IV medications for pain control and blood pressure management, time spent at the bedside, interpretation of EKG and diagnostic studies, discussion with other healthcare providers and arrangement of transport to the cardiac catheterization lab for further management. Diagnosis: 1. ST elevation myocardial infarction, acute 2. Chest pain, acute 3. Hypertension, acute Disposition: Admission Mansoor Calabrese DO Emergency Medicine Past Med/Surg History Problem List (Updated 02/15/24 @ 08:03 by Mansoor Calabrese DO) ST elevation (STEMI) myocardial infarction (Acute) Hyperglycemia due to diabetes mellitus Right lower lobe pneumonia (Acute) Adenovirus infection (Acute) Substernal chest pain (Acute) Acute hypoxemic respiratory failure (Acute) Pneumonia (Acute) Vomiting (Acute) Medical History Diabetes mellitus Pneumonia Social History Smoking Status: Never smoker Second Hand Exposure: No; Do You Dip or Chew Tobacco: No; Hx Alcohol Use: No Hx Substance Use: No Preferred Language: Yoruba Communication Ability: Effective Fretted Instruments Inspector Required: No Beliefs That Will Affect Care: None Current Living Situation: Spouse Current Living Situation Comment: Home with Feels Safe at Home: Yes Assistive Devices: None Allergies Allergies Allergy/AdvReac Type Severity Reaction Status Date / Time No Known Allergies Allergy Verified 04/30/22 19:45 Home Meds Home Medications Medication Instructions Recorded Confirmed lisinopril 10 1 tab PO DAILY 04/27/22 04/30/22 mg-hydrochlorothiazide 12.5 mg tablet metformin 500 mg tablet,extended 1,000 mg PO BID 04/27/22 04/30/22 release 24 hr Previous Rx's Medication Instructions Recorded albuterol sulfate 90 mcg/actuation 2 inh inhalation Q6H #18 grams 04/27/22 aerosol inhaler blood sugar diagnostic (KupiBonusuch #60 ea 05/03/22 Verio test strips) blood-glucose meter (OneTouch #1 ea 05/03/22 Verio Meter) lancets 33 gauge (OneTouch Delica #100 ea 05/03/22 Lancets) levalbuterol HCl 1.25 mg/0.5 mL 1.25 mg (0.5 mL) inhalation Q6R 05/03/22 solution for nebulization PRN shortness of breath or wheezing #15 ea Results & Data (ED) Vital Signs Vital Signs - 24 hr 02/15/24 07:17 02/15/24 07:28 02/15/24 07:36 Temperature 36.5 C Temperature Source Oral Pulse Rate 68 60 Respiratory Rate 20 Respiratory Effort / Characteristics Non-Labored Spontaneous Spontaneous Short of Breath Respiratory Depth Normal Normal Blood Pressure 205/116 H 205/116 H Blood Pressure Mean 145 Pulse Oximetry 98 Oxygen Delivery Method Room Air Oxygen Flow Rate Sepsis Recent Fever Within 48 Hours No Sepsis New/Unexplained Change in Mental Status N/A Sepsis Action Taken by Nursing No Action Required 02/15/24 07:45 Temperature Temperature Source Pulse Rate 74 Respiratory Rate 22 Respiratory Effort / Characteristics Respiratory Depth Blood Pressure 195/121 H Blood Pressure Mean 161 Pulse Oximetry 96 Oxygen Delivery Method Nasal Cannula Oxygen Flow Rate 2 Sepsis Recent Fever Within 48 Hours Sepsis New/Unexplained Change in Mental Status Sepsis Action Taken by Nursing Laboratory Data 02/15/24 07:30 02/15/24 07:30 Lab Results 02/15/24 Range/Units 07:30 WBC 8.48 (4.8-10.8) K/ul RBC 5.25 (4.20-5.40) M/uL Hgb 15.3 (12.0-16.0) g/dl Hct 43.4 (37.0-47.0) % MCV 82.7 (80.0-100.0) fL MCH 29.1 (25.0-34.0) pg MCHC 35.3 (32.0-36.0) g/dL RDW Std Deviation 36.9 (36.4-46.3) fL RDW Coeff of Eleonora 12.2 (11.5-14.5) % Plt Count 234 (130-400) K/uL MPV 10.4 (9.4-12.4) fL Immature Gran % (Auto) 1.3 % Neut % (Auto) 65.8 % Lymph % (Auto) 23.8 % Treasure % (Auto) 7.0 % Eos % (Auto) 1.2 % Baso % (Auto) 0.9 % Neut # (Auto) 5.58 (1.40-6.50) K/uL Lymph # (Auto) 2.02 (1.20-3.40) K/uL Treasure # (Auto) 0.59 (0.11-0.59) K/uL Eos # (Auto) 0.10 (0.00-0.50) K/uL Baso # (Auto) 0.08 (0.00-0.20) K/uL Immature Gran # (Auto) 0.11 (0.01-0.20) K/uL Sodium 135 L (136-145) mmol/L Potassium 4.1 (3.5-5.1) mmol/L Chloride 102 (98-107) mmol/L Carbon Dioxide 22 (21-32) mmol/L Anion Gap 11 (3-11) BUN 15 (6-23) mg/dl Creatinine 0.72 (0.6-1.2) mg/dl Est Cr Clr Drug Dosing 116.2 ml/min Est GFR ( Amer) 119.7 ml/min Est GFR (Non-Af Amer) 103.3 ml/min BUN/Creatinine Ratio 20.8 H (10-20) Glucose 300 H (70-99(Fasting)) mg/dl Calcium 8.7 (8.6-10.3) mg/dl Total Bilirubin 0.5 (0.2-1.0) mg/dl AST 16 (13-39) U/L ALT 21 (7-52) U/L Alkaline Phosphatase 73 (34-104) U/L Total Protein 7.3 (6.0-8.3) gm/dl Albumin 4.2 (3.4-5.0) gm/dl Globulin 3.1 (2.5-4.0) gm/dl Albumin/Globulin Ratio 1.4 (0.9-2) Lipase 18 (11-82) U/L Administered Medications Sodium Chloride (Nss) 1,000 mls @ 999 mls/hr IV .Q1H1M ONE Stop: 02/15/24 08:34 Last Admin: 02/15/24 07:37 Dose: 999 mls/hr Documented By: MR Discontinued Medications Aspirin (Aspirin Chew 324 Mg) 324 mg PO NOW STA Stop: 02/15/24 07:29 Last Admin: 02/15/24 07:36 Dose: 324 mg Documented By: MR Heparin Sodium (Porcine) (Heparin Sod (Porcine) 1000 Unit/Ml) Confirm Administered Dose 1,000 units .ROUTE .STK-MED ONE Stop: 02/15/24 07:37 Last Admin: 02/15/24 07:42 Dose: 5,000 units Documented By: MR Co-signed By: JACOBO Metoprolol Tartrate (Metoprolol Tartrate 1 Mg/Ml Vial) Confirm Administered Dose 5 mg IV .STK-MED ONE Stop: 02/15/24 07:33 Last Admin: 02/15/24 07:37 Dose: Not Given Documented By: MR Metoprolol Tartrate (Metoprolol Tartrate 1 Mg/Ml Vial) 5 mg IV NOW STA Stop: 02/15/24 07:35 Last Admin: 02/15/24 07:36 Dose: 5 mg Documented By: MR Morphine Sulfate (Morphine Sulfate 4 Mg/Ml 1 Ml Carp\Vial) 4 mg IV NOW STA Stop: 02/15/24 07:29 Last Admin: 02/15/24 07:36 Dose: 4 mg Documented By: MR Ondansetron HCl (Ondansetron Inj 2 Mg/Ml 2 Ml Vial) 4 mg IV NOW STA Stop: 02/15/24 07:29 Last Admin: 02/15/24 07:36 Dose: 4 mg Documented By: MR Discharge Plan Visit Data Chief Complaint: Chest Pain Stated Complaint: CHEST PAIN, SOB ED Provider: Mansoor Calabrese Discharge Problem: ST elevation (STEMI) myocardial infarction Forms Stand Alone Forms: My [facility] Prescriptions Prescriptions: No Action lisinopril-hydrochlorothiazide 10-12.5 mg tablet 1 tab PO DAILY metformin 500 mg tablet extended release 24 hr 1,000 mg PO BID Rx Instructions: ON HOLD D/T CT SCAN, TOLD TO WAIT TILL SEE MD ON 05/02/22. albuterol sulfate 90 mcg/actuation HFA aerosol inhaler 2 inh inhalation Q6H Qty: 18 2RF levalbuterol HCl 1.25 mg/0.5 mL Solution For Nebulization 1.25 mg inhalation Q6R PRN (Reason: shortness of breath or wheezing) Qty: 15 1RF (DME) blood-glucose meter [OneTouch Verio Meter] Misc See Rx Instructions .Route Qty: 1 0RF Rx Instructions: twice a day (DME) OneTouch Verio test strips Strip See Rx Instructions .Route Qty: 60 0RF Rx Instructions: twice a day (DME) lancets [OneTouch Delica Lancets] 33 gauge misc See Rx Instructions .ROUTE .MEDSUPPLY Qty: 100 0RF Rx Instructions: twice a day Referrals Referrals: Therese Shelley PA-C [Primary Care Provider] - Discharge Problem: ST elevation (STEMI) myocardial infarction Qualifiers: Involved coronary artery: unspecified coronary artery Qualified Code(s): I21.3 - ST elevation (STEMI) myocardial infarction of unspecified site
[2024-02-15] MEDS: METOPROLOL TARTRATE 1 MG/ML VIAL IV STA ×2 (07:36→09:54)
[2024-02-15] MEDS: ASPIRIN CHEW 324 MG PO STA (07:36)
[2024-02-15] MEDS: MoRPHine SULFATE 4 MG/ML 1 ML CARP\\VIAL IV STA (07:36)
[2024-02-15] MEDS: ONDANSETRON INJ 2 MG/ML 2 ML VIAL IV STA (07:36)
[2024-02-15] MEDS: METOPROLOL TARTRATE 1 MG/ML VIAL IV ONE (07:37)
[2024-02-15] MEDS: SODIUM CHLORIDE 0.9% 1,000 ML IV ONE (07:37)
[2024-02-15] MEDS: HEPARIN SOD (PORCINE) 1000 UNIT/ML ONE (07:42)
[2024-02-15 07:51] LABS: Basophils # (auto) 0.08 K/uL (0.00-0.20); Basophils % (auto) 0.9 %; Eosinophils % (auto) 1.2 %; Hematocrit (blood only) 43.4 % (37.0-47.0); Hemoglobin 15.3 g/dl (12.0-16.0); Immature Granulocytes # (auto) 0.11 K/uL (0.01-0.20); Immature Granulocytes % (auto) 1.3 %; Lymphocytes # (auto) 2.02 K/uL (1.20-3.40); Lymphocytes % (auto) 23.8 %; Mean Corpuscular Hemoglobin 29.1 pg (25.0-34.0); Mean Corpuscular Hgb Conc 35.3 g/dL (32.0-36.0); Mean Corpuscular Volume 82.7 fL (80.0-100.0); Mean Platelet Volume 10.4 fL (9.4-12.4); Monocytes # (auto) 0.59 K/uL (0.11-0.59); Neutrophils # (auto) 5.58 K/uL (1.40-6.50); Neutrophils % (auto) 65.8 %; Platelet Count 234 K/uL (130-400); RDW Coefficient of Variation 12.2 % (11.5-14.5); RDW Standard Deviation 36.9 fL (36.4-46.3); Red Blood Count 5.25 M/uL (4.20-5.40); White Blood Count 8.48 K/ul (4.8-10.8)
[2024-02-15 08:11] LABS: Albumin Globulin Ratio 1.4 (0.9-2); Albumin Level 4.2 gm/dl (3.4-5.0); BUN Creatinine Ratio 20.8 (10-20); Bilirubin,Total 0.5 mg/dl (0.2-1.0); Calcium 8.7 mg/dl (8.6-10.3); Creatinine Clr Calc Pharmacy 116.2 ml/min; Est GFR (African American) 119.7 ml/min; Est GFR (Non-African American) 103.3 ml/min; Globulin 3.1 gm/dl (2.5-4.0); Potassium 4.1 mmol/L (3.5-5.1); Total Protein 7.3 gm/dl (6.0-8.3)
--- NOTE | 2024-02-15 08:13 | XRay Report ---
XR chest 1V portable HISTORY: Chest pain, nonspecific COMPARISON: Chest CTA 04/30/2022. FINDINGS: No pneumothorax. No pleural effusions. There are poststernotomy changes. The cardiac silhou ette remains mildly enlarged. No new focal lung consolidations to suggest a pneumonia. No evidence fo r pulmonary edema. Small linear scarlike density noted within the right midlung zone. IMPRESSION: 1. Stable cardiomegaly. 2. Small linear density within the right midlung zone which favors scarring/atelectasis. ACT 112: Negative or not required by law. Electronically signed by: Alexander Vogel M.D. 02/15/2024 8:12 AM
[2024-02-15 08:15] LABS: INR 0.9 (0.9-1.1)
[2024-02-15 08:18] LABS: Troponin I High Sensitivity 16.4 pg/ml (0-14)
[2024-02-15] MEDS: OPTIRAY 350 ONE (08:31)
[2024-02-15] MEDS: niCARdipine HCL INJ 2.5 MG/ML 10 ML AMP ONE (08:31)
[2024-02-15] MEDS: fentaNYL citrate PF 100 MCG/2 ML VIAL ONE (08:32)
[2024-02-15] MEDS: TICAGRELOR 90 MG TAB ONE (08:32)
[2024-02-15] MEDS: NITROGLYCERIN/D5W 100MCG/ML 20ML SYR ONE (08:32)
[2024-02-15] MEDS: hydrALAZINE HCL 20 MG/ML VIAL ONE (08:32)
[2024-02-15] MEDS: MIDAZOLAM HCL 1 MG/ML 2ML VIAL ONE (08:33)
[2024-02-15] MEDS: HEPARIN (PORCINE) 1000 UNIT/ML 10 ML (CATH LAB USE ONLY) ONE (08:33)
--- NOTE | 2024-02-15 08:56 | Electrocardiogram Report ---
Test Reason : Blood Pressure : */* mmHG Vent. Rate : 64 BPM Atrial Rate : 64 BPM P-R Int : 146 ms QRS Dur : 88 ms QT Int : 434 ms P-R-T Axes : 29 76 106 degrees QTcB Int : 447 ms Age and gender specific ECG analysis Normal sinus rhythm ST segement changes concering for inferior injury Confirmed by Rasheed Aguilar ([id number]) on 02/15/2024 8:56:09 AM Referred By: REFERRED SELF Confirmed By: Rasheed Aguilar
[2024-02-15] MEDS ORDERED: NITROGLYCERIN SL 0.4 MG/TAB TAB SL PRN (09:02)
--- NOTE | 2024-02-15 09:02 | Pre Anesthesia Assessment ---
Date of Service February 15, 2024 Pre Sedation Assessment Vital Signs Temp Pulse Resp BP Pulse Ox O2 Del Method O2 Flow Rate 02/15/24 07:45 74 22 195/121 H 96 Nasal Cannula 2 02/15/24 07:36 60 205/116 H 02/15/24 07:17 36.5 C 68 20 205/116 H 98 Room Air Cardiovascular RRR, no murmur, no edema Respiratory normal respiratory effort, lungs clear to auscultation Pre-Sedation Airway Assessment Smoking Status: Never smoker Mallampati 3 ASA 4 Notes The planned sedation has been discussed with the patient. Informed Consent was obtained. I have identified the patient, determined the appropriateness of sedation and have assessed the patient immediately prior to the procedure. All medicine(s) and interventions are by my order.
--- NOTE | 2024-02-15 09:12 | Post Anesthesia Assessment ---
Date of Service February 15, 2024 Post Sedation Assessment Vital Signs Temp Pulse Resp BP Pulse Ox O2 Del Method O2 Flow Rate 02/15/24 09:03 95 H 21 97 Room Air 02/15/24 09:00 149/107 H 02/15/24 09:00 149/107 H 02/15/24 08:57 92 H 16 98 02/15/24 08:48 137/95 02/15/24 07:45 74 22 195/121 H 96 Nasal Cannula 2 02/15/24 07:36 60 205/116 H 02/15/24 07:17 36.5 C 68 20 205/116 H 98 Room Air Recovery Score Activity: Moves 4 extremities Respiration: Deep Breath/Cough Circulation: +/-20% PreAnes Value Consciousness: Fully Awake Oxygen Saturation: > 92% On Room Air Discharge Sedation Level of Care: Fast Track Phase II Post Sedation Plan On clinical assessment, the patient appears to have tolerated the sedation without complications. Patient is recovering as anticipated. Patient will continue to be monitored by nursing and may be discharged when sedation discharge criteria are met per below protocol. Upon Completions of procedure up to 15 minutes continue every 5 minute vital signs and the P.A.R. score; then discharge to a Phase I or Fast Track to Phase II per the following guidelines: * Discharge Patient to appropriate Phase II area if PAR is 8 or greater or return to pre- procedure baseline. The post - procedure orders will be as directed. * If PAR score is less than 8 or not return to pre-procedure baseline then patient will follow Phase I monitoring till PAR is reached for Phase II. The Phase I may be done in procedure room or may call to secure a Phase I area. * If naloxone or flumazenil are used for reversal, hold in Phase I for continued monitoring from when last reversal dose was given for a minimum of 60 minutes or longer pending the nurse and/or physician discretion of patient condition before discharge to Phase II. Please call the Sedation Physician to re-evaluate and complete post-note for discharge to Phase II area. Do NOT discharge from procedure sedation or Phase 1 until post- sedation evaluation note is complete by procedure /sedation MD Sedation Discharge Instructions to be given to the patient at discharge to home. [facility] Procedure Codes (Charges) Indication for Procedure Indication for procedure: STEMI Sedation/Anesthesia Procedure 1: Sedation/Anesthesia: 02047 Mod Sedation by the same physician;Init15 Min Child Age 5 & Up (Initial 15-minute, start time 0802) Total Sedation Time (minutes): 29 Procedure 2: Sedation/Anesthesia: 49623 Mod Sedation by the same physician; Ea [id number] Minutes (Additional 14 minutes, end time 0831) Total Sedation Time (minutes): 29
--- NOTE | 2024-02-15 09:38 | Critical Care Consultation ---
Date of Consultation February 15, 2024 Assessment & Plan (1) ST elevation (STEMI) myocardial infarction: Lipitor 40 mg Lisinopril 10 mg Metoprolol 25 mg twice daily Brilinta -Anticipate echocardiogram tomorrow morning ICU observation (2) Hyperglycemia due to diabetes mellitus: History of Present Illness Reason for Consultation: Status post drug-eluting stent after ST elevation RI Attending Physician: Walter Jones MD History of Present Illness Patient is a 43-year-old female with a past medical history of hypertension and diabetes who presented for chest pain to the emergency department and was found to have an ST elevation RI. The patient went emergently to the [facility] and received a drug-eluting stent. During my evaluation the patient is chest pain- free and currently asymptomatic. Allergies Allergy/AdvReac Type Severity Reaction Status Date / Time No Known Allergies Allergy Verified 04/30/22 19:45 Home Medications Medication Instructions Recorded Confirmed Type blood sugar diagnostic (OneTouch #60 ea 05/03/22 Rx Verio test strips) blood-glucose meter (OneTouch #1 ea 05/03/22 Rx Verio Meter) lancets 33 gauge (OneTouch Delica #100 ea 05/03/22 Rx Lancets) lisinopril 10 mg tablet 10 mg PO QAM 02/15/24 02/15/24 History metformin 500 mg tablet 500 mg PO BID 02/15/24 02/15/24 History Patient History Medical History Hypertension History of open heart surgery Diabetes mellitus Surgical History History of Social History Smoking Status: Never smoker Second Hand Exposure: No; Do You Dip or Chew Tobacco: No; Hx Alcohol Use: No Hx Substance Use: No Preferred Language: Japanese Communication Ability: Effective Certified Detention Deputy Required: No Beliefs That Will Affect Care: None Current Living Situation: Spouse Current Living Situation Comment: Home with Feels Safe at Home: Yes Assistive Devices: None Physical Exam Physical Exam: General: Alert. nontoxic. Skin: Warm, dry, Head: Atraumatic Ears, nose, mouth and throat: airway patent Cardiovascular: Normal peripheral perfusion Respiratory: no respiratory distress Gastrointestinal: Non distended Musculoskeletal: No deformity Results & Data Results & Data Vital Signs (Past 12 Hours) Vital Signs Temp Pulse Resp BP Pulse Ox O2 Del Method O2 Flow Rate 02/15/24 09:03 95 H 21 97 Room Air 02/15/24 09:00 149/107 H 02/15/24 09:00 149/107 H 02/15/24 08:57 92 H 16 98 02/15/24 08:48 137/95 02/15/24 07:45 74 22 195/121 H 96 Nasal Cannula 2 02/15/24 07:36 60 205/116 H 02/15/24 07:17 36.5 C 68 20 205/116 H 98 Room Air Critical Care Results & Data Vital Signs (Past 12 Hours) Vital Signs Temp Pulse Resp BP Pulse Ox O2 Del Method O2 Flow Rate 02/15/24 15:33 73 24 95 Room Air 02/15/24 15:30 145/87 H 02/15/24 15:30 145/87 H 02/15/24 15:27 74 24 95 02/15/24 15:09 77 26 H 94 02/15/24 15:00 141/95 H 02/15/24 15:00 141/95 H 02/15/24 14:51 75 27 H 93 02/15/24 14:36 71 19 93 02/15/24 14:30 126/79 02/15/24 14:27 70 27 H 94 02/15/24 14:00 68 18 94 02/15/24 14:00 123/84 02/15/24 14:00 123/84 02/15/24 13:30 69 23 94 02/15/24 13:27 70 23 96 02/15/24 13:27 122/92 02/15/24 13:27 122/92 02/15/24 13:06 75 22 96 02/15/24 13:01 137/86 02/15/24 12:54 74 26 H 95 02/15/24 12:39 78 23 96 02/15/24 12:30 136/114 H 02/15/24 12:15 157/103 H 02/15/24 12:15 157/103 H 02/15/24 12:15 157/103 H 02/15/24 12:03 78 19 94 02/15/24 12:00 142/93 H 02/15/24 12:00 142/93 H 02/15/24 11:48 87 24 95 02/15/24 11:45 153/89 H 02/15/24 11:39 86 20 94 02/15/24 11:36 94 H 24 94 02/15/24 11:31 149/90 H 02/15/24 11:31 149/90 H 02/15/24 11:31 149/90 H 02/15/24 11:21 84 22 95 02/15/24 11:15 167/114 H 02/15/24 11:15 167/114 H 02/15/24 11:06 86 16 95 02/15/24 11:00 84 19 96 02/15/24 10:46 149/107 H 02/15/24 10:46 149/107 H 02/15/24 10:46 149/107 H 02/15/24 10:42 87 30 H 96 02/15/24 10:33 88 24 95 02/15/24 10:30 149/113 H 02/15/24 10:30 149/113 H 02/15/24 10:24 86 13 94 02/15/24 10:18 82 20 94 02/15/24 10:15 147/100 H 02/15/24 10:15 147/100 H 02/15/24 10:15 147/100 H 02/15/24 10:10 88 02/15/24 10:09 98 H 23 94 02/15/24 10:06 87 21 94 02/15/24 10:00 165/120 H 02/15/24 10:00 165/120 H 02/15/24 09:57 86 20 94 02/15/24 09:54 85 163/102 H 02/15/24 09:51 90 16 95 02/15/24 09:45 163/102 H 02/15/24 09:33 92 H 26 H 94 02/15/24 09:30 154/97 H 02/15/24 09:30 154/97 H 02/15/24 09:30 154/97 H 02/15/24 09:28 162/102 H 02/15/24 09:27 94 H 20 94 02/15/24 09:15 91 H 15 96 02/15/24 09:03 95 H 21 97 Room Air 02/15/24 09:00 149/107 H 02/15/24 09:00 149/107 H 02/15/24 08:57 92 H 16 98 02/15/24 08:48 137/95 02/15/24 07:45 74 22 195/121 H 96 Nasal Cannula 2 02/15/24 07:36 60 205/116 H 02/15/24 07:17 36.5 C 68 20 205/116 H 98 Room Air Lab & Micro Results (Past 24 Hours) RBC 5.25 M/uL (4.20-5.40) 02/15/24 WBC 8.48 K/ul (4.8-10.8) 02/15/24 Hgb 15.3 g/dl (12.0-16.0) 02/15/24 Hct 43.4 % (37.0-47.0) 02/15/24 MCV 82.7 fL (80.0-100.0) 02/15/24 MCH 29.1 pg (25.0-34.0) 02/15/24 MCHC 35.3 g/dL (32.0-36.0) 02/15/24 RDW Standard Deviation 36.9 fL (36.4-46.3) 02/15/24 RDW Coefficient of Variation 12.2 % (11.5-14.5) 02/15/24 Plt Count 234 K/uL (130-400) 02/15/24 MPV 10.4 fL (9.4-12.4) 02/15/24 Neutrophils (%) (Auto) 65.8 % 02/15/24 Lymphocytes (%) (Auto) 23.8 % 02/15/24 Monocytes # (Auto) 0.59 K/uL (0.11-0.59) 02/15/24 Eosinophils # (Auto) 0.10 K/uL (0.00-0.50) 02/15/24 Immature Granulocyte % (Auto) 1.3 % 02/15/24 Neutrophils # (Auto) 5.58 K/uL (1.40-6.50) 02/15/24 Lymphocytes # (Auto) 2.02 K/uL (1.20-3.40) 02/15/24 Monocytes # (Auto) 0.59 K/uL (0.11-0.59) 02/15/24 Eosinophils # (Auto) 0.10 K/uL (0.00-0.50) 02/15/24 Basophils # (Auto) 0.08 K/uL (0.00-0.20) 02/15/24 Immature Granulocyte # (Auto) 0.11 K/uL (0.01-0.20) 4 Na 135 mmol/L (136-145) L 02/15/24 K 4.1 mmol/L (3.5-5.1) 02/15/24 Cl 102 mmol/L (98-107) 02/15/24 CO2 22 mmol/L (21-32) 02/15/24 Anion Gap 11 (3-11) 02/15/24 BUN 15 mg/dl (6-23) 02/15/24 Creatinine 0.72 mg/dl (0.6-1.2) 02/15/24 Estimated GFR ( Amer) 119.7 ml/min 02/15/24 Estimated GFR (Non-Af Amer) 103.3 ml/min 02/15/24 BUN/Creatinine Ratio 20.8 (10-20) H 02/15/24 Glu 300 mg/dl (70-99(Fasting)) H 02/15/24 Ca 8.7 mg/dl (8.6-10.3) 02/15/24 Total Bilirubin 0.5 mg/dl (0.2-1.0) 02/15/24 AST 16 U/L (13-39) 02/15/24 ALT 21 U/L (7-52) 02/15/24 Alkaline Phosphatase 73 U/L (34-104) 02/15/24 TP 7.3 gm/dl (6.0-8.3) 02/15/24 Albumin 4.2 gm/dl (3.4-5.0) 02/15/24 Globulin 3.1 gm/dl (2.5-4.0) 02/15/24 Albumin/Globulin Ratio 1.4 (0.9-2) 02/15/24 Mg 1.6 mg/dl (1.7-2.4) L 02/15/24 07:30 Calcium Level 8.7 mg/dl (8.6-10.3) 02/15/24 07:30 Prothromb Time International Ratio 0.9 (0.9-1.1) 02/15/24 07:3 0 Diagnostic Findings (Past 24 Hours) Chest X-Ray 02/15/24 07:28 XR chest 1V portable HISTORY: Chest pain, nonspecific COMPARISON: Chest CTA 04/30/2022. FINDINGS: No pneumothorax. No pleural effusions. There are poststernotomy changes. The cardiac silhouette remains mildly enlarged. No new focal lung consolidations to suggest a pneumonia. No evidence for pulmonary edema. Small linear scarlike density noted within the right midlung zone. IMPRESSION: 1. Stable cardiomegaly. 2. Small linear density within the right midlung zone which favors scarring/atelectasis. ACT 112: Negative or not required by law. Electronically signed by: Alexander Vogel M.D. 02/15/2024 8:12 AM I & O Totals 24 Hours 02/14/24 02/15/24 02/16/24 06:59 06:59 06:59 Intake Total 600 / 600 Output Total 0 / 0 Balance 600 / 600 Cumulative 02/15/24 07:13 thru 02/15/24 14:14 Intake Total 600 Output Total 0 Balance 600 RT Ventilator Mngmt (Last Documented) Ventilator Ordered Settings Respiratory Rate 24 02/15/24 15:33 Ventilator - PT Measurements Respiratory Rate 24 Coding Level of Care Code 03046 IN/OBS CONSULT LVL 3,45M Diagnoses ST elevation (STEMI) myocardial infarction I21.3 Involved coronary artery: unspecified coronary artery Hyperglycemia due to diabetes mellitus E11.65 (1) ST elevation (STEMI) myocardial infarction Involved coronary artery: unspecified coronary artery Qualified Code(s): I21.3 - ST elevation (STEMI) myocardial infarction of unspecified site
[2024-02-15] MEDS: SODIUM CHLORIDE 0.9% 1,000 ML IV SCH (09:55)
[2024-02-15 10:24] LABS: Estimated Average Glucose 243 mg/dl; Hemoglobin A1C 10.1 % (4.5-5.6)
[2024-02-15] MEDS ORDERED: PHARMACY GLYCEMIC MGMT CONSULT PRN (10:40)
--- NOTE | 2024-02-15 10:40 | History & Physical Report ---
Date of Service February 15, 2024 Assessment & Plan (1) ST elevation (STEMI) myocardial infarction: Plan: S/p emergent cardiac catheterization performed by Dr. Pires 02/15/24 - awaiting report Aspirin, Brilinta, Metoprolol, lisinopril and atorvastatin as ordered by ca rdiology Aim Mg > 2, K > 4 (2) Hyperglycemia due to diabetes mellitus: Plan: Appears to be chronically uncontrolled with HbA1C 9.3 in 2021 on metformin and she remains only on metformin now with HbA1C 10.1, although she maintains previous to 2021 her HbA1C was around 6.5 on metformin alone. Consult pharmacy for glycemic control but start with insulin to control glucose during admission Consider SGLT-2 inhibitor on discharge (3) Hypertension: Plan: Previously on lisinopril/HCTZ, now on lisinopril alone (reportedly this was a mistake when she changed health care systems). Metoprolol added s/p catheterization. Up titrate as BP/HR allow. Plan VTE Prophylaxis - deferred to ICU team Diet - T2DM, heart healthy Disposition - admit to ICU Admission and Anticipated Discharge Date Admission Date: February 15, 2024 History of Present Illness Chief Complaint: Chest pain Primary Care Provider: JUSTINE Gill Hiwot Marcus is a 43 year old female with hypertension and type 2 diabetes mellitus who presents to the ER with chest pain. Chest pain was substernal radiating to her left side with tingling in her left arm, severity 10/10 (currently 0/10), no worse on exertion/inspiration/position, associated shortness of breath, no diaphoresis, nausea or vomiting, progressively got worse over the course of 2 hours at which point she came to the ER. She reports no exertional chest pain or shortness of breath prior to this just the occasional chest tightness while walking in the cold which has been stable for years. No personal or significant family history of heart attacks or strokes. She has never smoked. She was diagnosed with hypertension and previously on lisinopril/hydrochlorothiazide however when she changed healthcare systems to [facility] this was changed to lisinopril alone which she thinks was a mistake in the switch and she didn't realize her medications were changed. She has a significant diagnosis of diabetes with an HbA1c 9.3 in 2021 during hospita lization for pneumonia however her diabetic regimen was not increased on discharge and she reports multiple canceled appointments since then and no repeat HbA1c until today it was 10.1. She has a significant history of open heart surgery at 16 years old to close a an atrial septal defect. Allergies Allergy/AdvReac Type Severity Reaction Status Date / Time No Known Allergies Allergy Verified 04/30/22 19:45 Home Medications Medication Instructions Recorded Confirmed Type albuterol sulfate 90 mcg/actuation 2 inh inhalation Q6H #18 grams 04/27/22 04/30/22 Rx aerosol inhaler blood sugar diagnostic (OneTouch #60 ea 05/03/22 Rx Verio test strips) blood-glucose meter (OneTouch #1 ea 05/03/22 Rx Verio Meter) lancets 33 gauge (OneTouch Delica #100 ea 05/03/22 Rx Lancets) levalbuterol HCl 1.25 mg/0.5 mL 1.25 mg (0.5 mL) inhalation Q6R 05/03/22 Rx solution for nebulization PRN shortness of breath or wheezing #15 ea lisinopril 10 mg tablet 10 mg PO QAM 02/15/24 02/15/24 History metformin 500 mg tablet 500 mg PO BID 02/15/24 02/15/24 History Past Med/Surg History Problem List (Updated 02/15/24 @ 11:46 by Walter Jones MD) ST elevation (STEMI) myocardial infarction (Acute) Hyperglycemia due to diabetes mellitus Substernal chest pain (Acute) Medical History (Updated 02/15/24 @ 11:46 by Walter Jones MD) Hypertension History of open heart surgery Diabetes mellitus Surgical History (Updated 02/15/24 @ 10:52 by Walter Jones MD) History of Social History Smoking Status: Never smoker Second Hand Exposure: No; Do You Dip or Chew Tobacco: No; Hx Alcohol Use: No Hx Substance Use: No Preferred Language: Dominican Communication Ability: Effective Newspaper Photo Editor Required: No Beliefs That Will Affect Care: None Current Living Situation: Spouse Current Living Situation Comment: Home with Other Information That Helps Us Care for You: No Feels Safe at Home: Yes Safety Concerns: Feels Safe At This Time Assistive Devices: None Review of Systems 2 Review of Systems: All systems reviewed & are unremarkable except as noted in HPI & below Physical Exam Constitutional: WD/WN, vitals as above Eyes: + anicteric sclerae; normal pupil size ENMT: external ear and nose normal, oropharynx normal Respiratory: normal respiratory effort, lungs clear to auscultation Cardiovascular: RRR, no murmur, no edema Gastrointestinal (Abdomen): normal bowel sounds, soft, nontender, no hepatosplenomegaly Musculoskeletal: no cyanosis or clubbing, extremities motor strength 5/5 Skin: no rashes, warm and dry Neurologic: moves all extremities and awake; not confused Psychiatric: A+Ox3, euthymic affect Results & Data Results & Data Vital Signs (Past 12 Hours) Vital Signs Temp Pulse Resp BP Pulse Ox O2 Del Method O2 Flow Rate 02/15/24 09:54 85 163/102 H 02/15/24 09:03 95 H 21 97 Room Air 02/15/24 09:00 149/107 H 02/15/24 09:00 149/107 H 02/15/24 08:57 92 H 16 98 02/15/24 08:48 137/95 02/15/24 07:45 74 22 195/121 H 96 Nasal Cannula 2 02/15/24 07:36 60 205/116 H 02/15/24 07:17 36.5 C 68 20 205/116 H 98 Room Air Laboratory Results Abnormal lab results 02/15/24 02/15/24 02/15/24 Range/Units 07:30 08:14 08:27 Activ Coag Time Kaolin 202 H 238 H (94-140) SECONDS Sodium 135 L (136-145) mmol/L BUN/Creatinine Ratio 20.8 H (10-20) Glucose 300 H (70-99(Fasting)) mg/dl Hemoglobin A1c (4.5-5.6) % Troponin I High Sens 16.4 H (0-14) pg/ml 02/15/24 Range/Units 09:02 Activ Coag Time Kaolin (94-140) SECONDS Sodium (136-145) mmol/L BUN/Creatinine Ratio (10-20) Glucose (70-99(Fasting)) mg/dl Hemoglobin A1c 10.1 H (4.5-5.6) % Troponin I High Sens (0-14) pg/ml Diagnostic Findings XR chest 1V portable HISTORY: Chest pain, nonspecific COMPARISON: Chest CTA 04/30/2022. FINDINGS: No pneumothorax. No pleural effusions. There are poststernotomy changes. The cardiac silhouette remains mildly enlarged. No new focal lung consolidations to suggest a pneumonia. No evidence for pulmonary edema. Small linear scarlike density noted within the right midlung zone. IMPRESSION: 1. Stable cardiomegaly. 2. Small linear density within the right midlung zone which favors scarring/atelectasis. Medications Administered ER medications given: Ondansetron 4 mg IV Morphine 4 mg IV Aspirin 324 mg p.o. Normal saline 1 L bolus Metoprolol tartrate 5 mg IV ECG Rate (beats per minute): 64 Rhythm: normal sinus Findings: + ST elevation (Inferior, with reciprocal ST depression changes laterally) Comparison ECG Date: from (April 30, 2022) Change: the following changes noted (Rate decreased, ST elevations in inferior leads new) Code Status & VTE Plan Code Status Full VTE Prophylaxis Plan VTE Prophylaxis will be ordered: Yes PG Care Time/CCT Total # of Minutes Spent Total Time Spent with Patient: Total time spent is greater than 50% in coordination of care (as documented) at patient's floor/unit and/or counseling patient: Coding Level of Care Code 70014 INT INP/OBS CARE 3/75MIN Diagnoses ST elevation (STEMI) myocardial infarction I21.3 Involved coronary artery: unspecified coronary artery Hyperglycemia due to diabetes mellitus E11.65 Primary hypertension I10 Hypertension type: primary hypertension (1) ST elevation (STEMI) myocardial infarction Involved coronary artery: unspecified coronary artery Qualified Code(s): I21.3 - ST elevation (STEMI) myocardial infarction of unspecified site (3) Hypertension Hypertension type: primary hypertension Qualified Code(s): I10 - Essential (primary) hypertension
[2024-02-15] MEDS: lisinopril 10 MG TAB PO SCH (10:44)
[2024-02-15] MEDS: ATORVASTATIN 40 MG TAB PO SCH (10:44)
[2024-02-15] MEDS ORDERED: DEXTROSE 50% 50 ML SYRINGE IV PRN (10:45)
[2024-02-15] MEDS ORDERED: CARBOHYDRATES FOR HYPOGLYCEMIA PO PRN (10:45)
[2024-02-15] MEDS ORDERED: GLUCOSE 10 TAB/TUBE PO PRN (10:45)
[2024-02-15] MEDS ORDERED: GLUCAGON FOR INJ 1 MG VIAL SQ PRN (10:45)
[2024-02-15] MEDS ORDERED: GLUCOSE 40% GEL 15 GM TUBE PO PRN (10:45)
[2024-02-15] MEDS: METOPROLOL TARTRATE 25 MG TAB PO SCH (11:00)
[2024-02-15] MEDS: MAGNESIUM SULFATE / D5W 1 GM/100 ML BAG IV SCH (12:14)
[2024-02-15] MEDS: INSULIN ASPART PER UNIT CHARGE SC SCH (12:18)
[2024-02-15] MEDS: LANTUS PER UNIT CHARGE SC ONE (12:19)
--- NOTE | 2024-02-15 12:23 | Pharmacy Report ---
Pharmacy Glycemic Short Note 2 - Date of Service February 15, 2024 - Glycemic Short BSG Results (Last 24 hours): 02/15/24 02/15/24 07:30 11:27 Glucose 300 H POC Glucose 211 H OUTPATIENT ANTIDIABETIC REGIMEN: * metformin 500mg PO BID HbA1C: 10.1% ASSESSMENT: * Pt is a 43 year old female admitted s/p emergent cath for STEMI. History of DM2 on metformin monotherapy. Pharmacy consulted to assist with glycemic management. * BSGs 300-211mg/dl. Diet ordered, other stressors stable. * Initiate basal/bolus insulin. Novolog moderate stress scale ACHS. Lantus 10 units SQ X 1 dose with lunch and reassess basal in AM. PLAN FOR INPATIENT GLYCEMIC CONTROL: * Hold outpatient oral diabetes medications * Basal insulin * Lantus 10 units SQ X 1 * Bolus insulin * NovoLog per scale ACHS or Q6hrs while NPO * Goal Range: Low 110 mg/dL - High 140 mg/dL * Correction Factor: 30 mg/dL/unit * Nutritional / Prandial insulin per carb ratio of 1 unit per 12 grams CHO consumed
--- NOTE | 2024-02-15 12:51 | Communication Note ---
Date of Service: February 15, 2024 [facility] service was initially consulted on this patient to help coordinate admission and ongoing care after cardiac catheterization. Patient was seen and examined and brief conversation was held with the patient and her family at the bedside about her history of present illness and the findings in the Route Supervisor. Through additional conversation it was learned that the patient had just recently establish care with non-[facility] primary care provider. [facility] medicine group was contacted. They graciously accepted the ongoing care of the patient. Thank you
[2024-02-15] MEDS: ATROPINE SULFATE 0.1 MG/ML 10ML SYR IV ONE (14:02)
--- NOTE | 2024-02-15 15:38 | Electrocardiogram Report ---
Test Reason : Blood Pressure : */* mmHG Vent. Rate : 76 BPM Atrial Rate : 76 BPM P-R Int : 146 ms QRS Dur : 76 ms QT Int : 424 ms P-R-T Axes : 29 26 89 degrees QTcB Int : 477 ms Age and gender specific ECG analysis Normal sinus rhythm ST elevation consider inferior injury or acute infarct ACUTE IL / STEMI Consider right ventricular involvement in acute inferior infarct Abnormal ECG When compared with ECG of 15-Feb-2024 07:25, T wave inversion less evident in Lateral leads Confirmed by Rasheed Aguilar ([id number]) on 02/15/2024 3:38:04 PM Referred By: REFERRED SELF Confirmed By: Rasheed Aguilar
--- NOTE | 2024-02-15 16:08 | Cardiac Catheterization ---
ACC Data: Student Services Counselor Cardiac Status Clinical evaluation leading to the procedure CAD Presenation: STEMI Anginal Classification: CCS IV Heart Failure: No Cardiogenic Shock within 24 Hours: No Cardiac Arrest within 24 Hours: No Imaging Studies Past 6 Months: No Stress Studies Past 6 Months: No STEMI OR Non-STEMI Symptom Onset Date: 02/15/24 Symptom Onset Time: 06:00 Thrombolytics: No Coronary Anatomy Dominant: Right Left Main (% Stenosis): Normal LAD (% Stenosis): Mid (80%) D1 (% Stenosis): Ostial (99 to 100%) Circumflex (% Stenosis): Distal (Long eccentric 60 to 70%) OM1 (% Stenosis): Proximal (99%) OM2 (% Stenosis): Normal (Diffuse less than 50 percent) L PL1 (% Stenosis): Normal RCA (% Stenosis): Distal (100%) R PDA (% Stenosis): Normal R PL1 (% Stenosis): Normal Ramus (% Stenosis): Normal Left Ventricular Angiography EF (%): 50 Diagnostic Physicians Name: Gustabo Pires MD, PhD Closure Device Percutaneous Entry Location: Radial Closure Device: Radial Band Recommendations: Medical Therapy and/or Counseling and PCI without planned CABG PCI Indication: PCI for STEMI - Stable First Noted: First EKG Lesion Segment Name: Distal RCA Culprit Artery: Yes Stenosis Prior to Rx (%): 100% Chronic Total Occlusion: No Pre-Procedure VANE Flow: 0 Previously Treated Lesion: No Lesion Complexity: Non-High/Non-C Lesion Length (mm): 12 Thrombus Present: Yes Bifurcation Lesion: No Guidewire Across Lesion: Yes Cardiac Cath Procedure Full Procedure Date February 15, 2024 Pre-Procedure Diagnosis Pre-Procedure Diagnosis: STEMI AUC Score AUC Score: 09 Post-Procedure Diagnosis Post-Procedure Diagnosis: Severe CAD and Successful PCI Procedure(s) Performed Procedure(s) Performed: Coronary Angiography, Left Heart Cath, LV Angiography and Drug Eluting Stent Merchandising Execution Associate Gustabo Pires MD, PhD Estimated Blood Loss Estimated Blood Loss: 10 cc Medication(s) Medication(s): Fentanyl, Heparin, Hydralazine, Lidocaine 1%, Nicardipine, Nitroglycerin and Versed Summary of Findings Brief description: Patient was brought to the cardiac catheterization suite where she was shaved and prepped in a sterile fashion. Sedated using IV Versed and fentanyl. Soft tissues of the right wrist were anesthetized using 2 mL of 1% Xylocaine. The right radial artery was accessed with a modified Seldinger technique and a 6 Polish radial artery glide sheath was placed. Patient was provided anticoagulation with IV heparin and antispasmodics including nicardipine and nitroglycerin. All catheters were advanced and exchanged over a 0.035 J-tip wire. Right coronary angiography was performed in orthogonal views with a 5 Polish [place] 4 diagnostic catheter. We moved to PCI. 6 Polish JR4 guide catheter was used to engage the right coronary artery. ACT was checked and additional heparin was provided as needed to maintain therapeutic anticoagulation. A BMW reversal guidewire was advanced and positioned distally in the RCA. The lesion was predilated using a 2.5 x 12 mm CBR X balloon at 8 thomas. A 3.0 x 18 mm Minesh drug-eluting stent was then deployed initially at 12 thomas followed by a second 18 thomas inflation. Balloon was removed. The stent was postdilated at 14 thomas proximally, 14 thomas mid, and then a final proximal inflation to 16 thomas using a 3.25 x 8 mm NC Rickey balloon. Balloon was removed from the patient. Industrial/Organizational Psychologist angiography was performed. Guide catheter was removed from the patient. Left coronary angiography, left heart cath, and left ventriculogram were all performed with a 5 Polish JL 3.5 diagnostic catheter. Diagnostic catheter was removed. Radial artery sheath was removed. Hemostasis was obtained using the TR band. Patient remained hemodynamically stable and asymptomatic. She was returned to the recovery area. Plan for admission to the ICU. This ended the case. Coronary angiography findings: GNL-ttqcm-saezakl vessel trifurcating into LAD, ramus, and circumflex. No angiographically evident disease. QHT-ihvxa-ipxlxot vessel. Proximal segment with mild disease. The mid segment has 80% long stenosis. There appears to be a late filling large caliber branching first diagonal or ramus. This is 99 to 100% occluded at its ostium. There is a diagonal after this which has mild scattered disease and is of small to medium caliber. WYe-tswkv-xbxfsmu vessel. Travels in AV groove where the proximal and mid segment have no more than mild luminal irregularities. Large OM1 has multiple branches and in its proximal segment 99% stenosis. Mid AV groove vessel gives an atrial branch and has only mild luminal irregularities. There is a medium caliber relatively short OM 2 which has diffuse less than 50% stenosis. The distal AV groove circumflex remains relatively large caliber with a long eccentric 60 to 70% stenosis and then it becomes a large caliber branching posterior lateral. Ramus-in addition to the large/long D1/ramus there is a small caliber ramus without significant disease. RCA-this is large caliber and dominant. Proximal and mid mild luminal irregularities and then the early distal vessel is 100% occluded. There is VANE 0 flow. This is the culprit for acute [place]. PCI of RCA-0% residual stenosis post PCI No evidence of dissection or perforation post PCI VANE-3 flow post PCI LVG-EF 50% Summary: 1. Severe multivessel coronary artery disease as described. Culprit lesion is distal RCA. 2. Successful PCI with implantation of a drug-eluting stent to the distal RCA. 3. Patient will be placed on dual antiplatelet therapy with aspirin 81 mg daily and Brilinta 90 mg p.o. twice daily. 4. Patient will be initiated on guideline directed medical therapy for secondary prevention of coronary disease to include; low-dose aspirin, high int ensity statin therapy, beta-xin, and EVER inhibitor will be continued at a higher dose. 5. Consideration for additional revascularization will include coronary artery bypass grafting versus staged multivessel PCI at a tertiary center. Hemodynamics Rest Ao:: 162/118 mmHg Final Ao: 109/81 mmHg LV: 116/11 mmHg, LVEDP 17 mmHg Recommendations Recommendations: Medical Therapy and/or Counseling and PCI without planned CABG Radiation Exposure (mGy) 1683 mGy, fluoroscopy time 7.0 minutes Contrast (mls) 150 Anesthesia 2 mg Versed, 50 mcg fentanyl IV. Start time 0802, end time 08 Procedural Complication(s) None Disposition ICU I attest to the content of the Intraoperative Record and any orders documented therein. Any exceptions are noted below. [facility] Card Cath Procedure Codes Cardiac Catheterization Procedure 1: Cardiovascular Cath Procedures: 95896 Coronaries and LHC (+/-LV) Moderate Sedation Procedure 1: Sedation/Anesthesia: 10120 Mod Sedation by the same physician;Init15 Min Child Age 5 & Up (Initial 15 minutes, start time 0802) Procedure 2: Sedation/Anesthesia: 27006 Mod Sedation by the same physician; Ea [id number] Minutes (Additional 14 minutes, end time 08) Stenting Procedure 1: Cardiovascular Stent Procedures: 94406 Perc transluminal revascularization of acute sub/total occl, aMI (RCA) PG Care Time/CCT Total # of Minutes Spent Total Time Spent with Patient: Total time spent is greater than 50% in coordination of care (as documented) at patient's floor/unit and/or counseling patient:
[2024-02-15] MEDS: ACETAMINOPHEN 325 MG TAB PO PRN (20:26)
[2024-02-15] MEDS: TICAGRELOR 90 MG TAB PO SCH (20:26)
[2024-02-16 07:58] LABS: Basophils # (auto) 0.06 K/uL (0.00-0.20); Basophils % (auto) 0.7 %; Eosinophils # (auto) 0.12 K/uL (0.00-0.50); Eosinophils % (auto) 1.4 %; Hematocrit (blood only) 42.7 % (37.0-47.0); Hemoglobin 14.7 g/dl (12.0-16.0); Immature Granulocytes # (auto) 0.11 K/uL (0.01-0.20); Immature Granulocytes % (auto) 1.3 %; Lymphocytes # (auto) 1.92 K/uL (1.20-3.40); Lymphocytes % (auto) 22.5 %; Mean Corpuscular Hgb Conc 34.4 g/dL (32.0-36.0); Mean Corpuscular Volume 84.2 fL (80.0-100.0); Mean Platelet Volume 10.3 fL (9.4-12.4); Monocytes # (auto) 0.65 K/uL (0.11-0.59); Monocytes % (auto) 7.6 %; Neutrophils # (auto) 5.66 K/uL (1.40-6.50); Neutrophils % (auto) 66.5 %; Platelet Count 251 K/uL (130-400); RDW Coefficient of Variation 12.3 % (11.5-14.5); RDW Standard Deviation 37.3 fL (36.4-46.3); Red Blood Count 5.07 M/uL (4.20-5.40); White Blood Count 8.52 K/ul (4.8-10.8)
[2024-02-16 08:20] LABS: Anion Gap 9 (3-11); BUN Creatinine Ratio 23.1 (10-20); Blood Urea Nitrogen 15 mg/dl (6-23); Calcium 8.4 mg/dl (8.6-10.3); Carbon Dioxide 21 mmol/L (21-32); Chloride 105 mmol/L (98-107); Cholesterol 239 mg/dl (0-200); Creatinine Clr Calc Pharmacy 128.3 ml/min; Est GFR (African American) 126.9 ml/min; Est GFR (Non-African American) 109.5 ml/min; Glucose 196 mg/dl (70-99(Fasting)); HDL Cholesterol 34 mg/dl; Phosphorus 3.7 mg/dl (2.5-4.9); Sodium 135 mmol/L (136-145); Triglycerides 463 mg/dl (0-150)
--- NOTE | 2024-02-16 08:32 | Hospitalist Progress Note ---
Date of Service February 16, 2024 Assessment & Plan (1) ST elevation (STEMI) myocardial infarction: Plan: 43 y/o presented with STEMI found to have occlusion of distal RCA which was treated with successful PCI. Also found to have severe multivessel CAD in need of evaluation for further treatment with CABG or staged multivessel PCI. EF was 50% during angiography. Admitted to ICU post PCI TTE and repeat EKG today pending. Reviwed - EKG tracing shows NICHOLE in 3 aVR and avF, depression I, aVL, flattening in V1. Echo with normal LV, borderline posterior hypokinesis, normal RV function, mod LVH, mild dilated IVC Trop downtrending 83078 --> 60545 Aspirin, Brilinta, Metoprolol, lisinopril and atorvastatin as ordered by cardiology Aim Mg > 2, K > 4 lipids TG 463, cannot calculate LDL, HDL 34. Check direct LDL statin, plan to start jardiance (2) Hyperglycemia due to diabetes mellitus: Plan: Appears to be chronically uncontrolled with HbA1C 9.3 in 2021 on metformin and she remains only on metformin now with HbA1C 10.1, although she maintains previous to 2021 her HbA1C was around 6.5 on metformin alone. Consult pharmacy for glycemic control but start with insulin to control glucose during admission plan to start jardiance on discharge, usp good candidate for GLP-1 but she is afraid of injections counseled wrt diet (3) Hypertension: Plan: Previously on lisinopril/HCTZ, now on lisinopril alone (reportedly this was a mistake when she changed health care systems). Metoprolol added s/p catheterization. Up titrate as BP/HR allow. Plan VTE Prophylaxis - DAPT, SCD's, low risk transfer to PCU Admission and Anticipated Discharge Date Admission Date: February 15, 2024 Subjective feeling well and no chest pain no dyspnea she says previously she had her A1c down below 7 with following her diet but had recently not been pain attention to it Physical Exam 2 Physical Exam: PHYSICAL EXAMINATION Last 24h vital signs reviewed, see documentation in flowsheet General: comfortable appearing, no distress HEENT: Normocephalic, atraumatic, pupils round and equal, sclerae anicteric, no conjunctival injection, moist mucus membranes Lungs: Normal respiratory effort. Clear to auscultation bilaterally. No RRW Heart: Regular rate and rhythm, no murmurs. No JVD Abdomen: Soft, nontender, nondistended. Bowel sounds present. Extremities: Warm, dry, well-perfused. No extremity edema. right radial puncture site with good pulse no ecchymosis no swelling, hand is warm Neuro: Alert and oriented x 4, face symmetric, moves 4 extremities well Psych: Normal affect and behavior Results & Data Results & Data Vital Signs (Past 12 Hours) Vital Signs Pulse Resp BP Pulse Ox O2 Del Method 02/16/24 07:00 131/109 H 02/16/24 07:00 67 14 95 Room Air 02/16/24 01:06 72 16 94 02/16/24 01:00 149/95 H 02/16/24 00:39 68 19 92 02/16/24 00:02 152/109 H 02/16/24 00:00 74 13 94 02/16/24 00:00 78 02/15/24 23:06 76 20 94 02/15/24 23:03 140/90 02/15/24 22:11 140/79 02/15/24 22:00 78 17 94 02/15/24 21:12 150/91 H 02/15/24 21:12 150/91 H 02/15/24 21:00 81 21 94 Laboratory Results 02/16/24 08:33 02/16/24 08:33 Diagnostic Findings Coronary angiography findings: FMW-ruguf-axykrnn vessel trifurcating into LAD, ramus, and circumflex. No angiographically evident disease. UPZ-hvteh-dmfudzw vessel. Proximal segment with mild disease. The mid segment has 80% long stenosis. There appears to be a late filling large caliber branching first diagonal or ramus. This is 99 to 100% occluded at its ostium. There is a diagonal after this which has mild scattered disease and is of small to medium caliber. OMu-fzbdl-pmstnca vessel. Travels in AV groove where the proximal and mid segment have no more than mild luminal irregularities. Large OM1 has multiple branches and in its proximal segment 99% stenosis. Mid AV groove vessel gives an atrial branch and has only mild luminal irregularities. There is a medium caliber relatively short OM 2 which has diffuse less than 50% stenosis. The distal AV groove circumflex remains relatively large caliber with a long eccentric 60 to 70% stenosis and then it becomes a large caliber branching posterior lateral. Ramus-in addition to the large/long D1/ramus there is a small caliber ramus without significant disease. RCA-this is large caliber and dominant. Proximal and mid mild luminal irregularities and then the early distal vessel is 100% occluded. There is VANE 0 flow. This is the culprit for acute [place]. PCI of RCA-0% residual stenosis post PCI No evidence of dissection or perforation post PCI VANE-3 flow post PCI LVG-EF 50% Summary: 1. Severe multivessel coronary artery disease as described. Culprit lesion is distal RCA. 2. Successful PCI with implantation of a drug-eluting stent to the distal RCA. 3. Patient will be placed on dual antiplatelet therapy with aspirin 81 mg daily and Brilinta 90 mg p.o. twice daily. 4. Patient will be initiated on guideline directed medical therapy for secondary prevention of coronary disease to include; low-dose aspirin, high intensity statin therapy, beta-xin, and EVER inhibitor will be continued at a higher dose. 5. Consideration for additional revascularization will include coronary artery bypass grafting versus staged multivessel PCI at a tertiary center. PG Care Time/CCT Total # of Minutes Spent Total Time Spent with Patient: Total time spent is greater than 50% in coordination of care (as documented) at patient's floor/unit and/or counseling patient: Coding Level of Care Code 85956 SUB INP/OBS CARE 3/50MIN Diagnoses ST elevation (STEMI) myocardial infarction I21.3 Involved coronary artery: unspecified coronary artery Hyperglycemia due to diabetes mellitus E11.65 Primary hypertension I10 Hypertension type: primary hypertension (1) ST elevation (STEMI) myocardial infarction Involved coronary artery: unspecified coronary artery Qualified Code(s): I 21.3 - ST elevation (STEMI) myocardial infarction of unspecified site (3) Hypertension Hypertension type: primary hypertension Qualified Code(s): I10 - Essential (primary) hypertension
[2024-02-16] MEDS: ASPIRIN 81 MG ECTAB PO SCH (08:33)
[2024-02-16] MEDS: LANTUS PER UNIT CHARGE SC SCH (08:33)
[2024-02-16 09:01] LABS: Basophils # (auto) 0.08 K/uL (0.00-0.20); Basophils % (auto) 0.9 %; Eosinophils # (auto) 0.11 K/uL (0.00-0.50); Eosinophils % (auto) 1.3 %; Hematocrit (blood only) 41.5 % (37.0-47.0); Hemoglobin 14.5 g/dl (12.0-16.0); Immature Granulocytes # (auto) 0.13 K/uL (0.01-0.20); Immature Granulocytes % (auto) 1.5 %; Lymphocytes # (auto) 1.95 K/uL (1.20-3.40); Lymphocytes % (auto) 22.2 %; Mean Corpuscular Hemoglobin 29.5 pg (25.0-34.0); Mean Corpuscular Hgb Conc 34.9 g/dL (32.0-36.0); Mean Corpuscular Volume 84.5 fL (80.0-100.0); Mean Platelet Volume 10.4 fL (9.4-12.4); Monocytes # (auto) 0.63 K/uL (0.11-0.59); Monocytes % (auto) 7.2 %; Neutrophils # (auto) 5.88 K/uL (1.40-6.50); Neutrophils % (auto) 66.9 %; Platelet Count 247 K/uL (130-400); RDW Coefficient of Variation 12.3 % (11.5-14.5); RDW Standard Deviation 37.2 fL (36.4-46.3); Red Blood Count 4.91 M/uL (4.20-5.40); White Blood Count 8.78 K/ul (4.8-10.8)
--- NOTE | 2024-02-16 10:49 | Critical Care Progress Note ---
Date of Service February 16, 2024 Assessment & Plan (1) ST elevation (STEMI) myocardial infarction: Plan: Lipitor 40 mg Lisinopril 10 mg Metoprolol 25 mg twice daily Brilinta -Echocardiogram obtained this morning awaiting formal report Stable for downgrade out of ICU, critical care will sign off (2) Hyperglycemia due to diabetes mellitus: Admission and Anticipated Discharge Date Admission Date: February 15, 2024 Subjective No overnight events. Patient feels significantly better than yesterday. Desires to go home Physical Exam Physical Exam: General: Alert. nontoxic. Skin: Warm, dry, Head: Atraumatic Ears, nose, mouth and throat: airway patent Cardiovascular: Normal peripheral perfusion Respiratory: no respiratory distress Gastrointestinal: Non distended Musculoskeletal: No deformity Results & Data Results & Data Vital Signs (Past 12 Hours) Vital Signs Pulse Resp BP Pulse Ox O2 Del Method 02/16/24 09:04 158/108 H 02/16/24 09:03 83 19 90 02/16/24 09:02 156/116 H 02/16/24 08:42 84 22 95 02/16/24 08:18 79 20 96 02/16/24 07:00 131/109 H 02/16/24 07:00 67 14 95 Room Air 02/16/24 01:06 72 16 94 02/16/24 01:00 149/95 H 02/16/24 00:39 68 19 92 02/16/24 00:02 152/109 H 02/16/24 00:00 74 13 94 02/16/24 00:00 78 02/15/24 23:06 76 20 94 02/15/24 23:03 140/90 Critical Care Results & Data Vital Signs (Past 12 Hours) Vital Signs Pulse Resp BP Pulse Ox O2 Del Method 02/16/24 09:04 158/108 H 02/16/24 09:03 83 19 90 02/16/24 09:02 156/116 H 02/16/24 08:42 84 22 95 02/16/24 08:18 79 20 96 02/16/24 07:00 131/109 H 02/16/24 07:00 67 14 95 Room Air 02/16/24 01:06 72 16 94 02/16/24 01:00 149/95 H 02/16/24 00:39 68 19 92 02/16/24 00:02 152/109 H 02/16/24 00:00 74 13 94 02/16/24 00:00 78 02/15/24 23:06 76 20 94 02/15/24 23:03 140/90 Lab & Micro Results (Past 24 Hours) RBC 4.91 M/uL (4.20-5.40) 02/16/24 WBC 8.78 K/ul (4.8-10.8) 02/16/24 Hgb 14.5 g/dl (12.0-16.0) 02/16/24 Hct 41.5 % (37.0-47.0) 02/16/24 MCV 84.5 fL (80.0-100.0) 02/16/24 MCH 29.5 pg (25.0-34.0) 02/16/24 MCHC 34.9 g/dL (32.0-36.0) 02/16/24 RDW Standard Deviation 37.2 fL (36.4-46.3) 02/16/24 RDW Coefficient of Variation 12.3 % (11.5-14.5) 02/16/24 Plt Count 247 K/uL (130-400) 02/16/24 MPV 10.4 fL (9.4-12.4) 02/16/24 Neutrophils (%) (Auto) 66.9 % 02/16/24 Lymphocytes (%) (Auto) 22.2 % 02/16/24 Monocytes # (Auto) 0.63 K/uL (0.11-0.59) H 02/16/24 Eosinophils # (Auto) 0.11 K/uL (0.00-0.50) 02/16/24 Immature Granulocyte % (Auto) 1.5 % 02/16/24 Neutrophils # (Auto) 5.88 K/uL (1.40-6.50) 02/16/24 Lymphocytes # (Auto) 1.95 K/uL (1.20-3.40) 02/16/24 Monocytes # (Auto) 0.63 K/uL (0.11-0.59) H 02/16/24 Eosinophils # (Auto) 0.11 K/uL (0.00-0.50) 02/16/24 Basophils # (Auto) 0.08 K/uL (0.00-0.20) 02/16/24 Immature Granulocyte # (Auto) 0.13 K/uL (0.01-0.20) 4 Na 135 mmol/L (136-145) L 02/16/24 K 4.0 mmol/L (3.5-5.1) 02/16/24 Cl 105 mmol/L (98-107) 02/16/24 CO2 21 mmol/L (21-32) 02/16/24 Anion Gap 9 (3-11) 02/16/24 BUN 15 mg/dl (6-23) 02/16/24 Creatinine 0.65 mg/dl (0.6-1.2) 02/16/24 Estimated GFR ( Amer) 126.9 ml/min 02/16/24 Estimated GFR (Non-Af Amer) 109.5 ml/min 02/16/24 BUN/Creatinine Ratio 23.1 (10-20) H 02/16/24 Glu 196 mg/dl (70-99(Fasting)) H 02/16/24 Ca 8.4 mg/dl (8.6-10.3) L 02/16/24 Phosphorus Level 3.7 mg/dl (2.5-4.9) 02/16/24 Mg 1.7 mg/dl (1.7-2.4) 02/16/24 04:36 Calcium Level 8.4 mg/dl (8.6-10.3) L 02/16/24 07:07 I & O Totals 24 Hours 02/15/24 02/16/24 02/17/24 06:59 06:59 06:59 Intake Total 3223.75 / 3223.75 Output Total 0 / 0 Balance 3223.75 / 3223.75 Cumulative 02/15/24 07:13 thru 02/16/24 06:30 Intake Total 3223.75 Output Total 0 Balance 3223.75 RT Ventilator Mngmt (Last Documented) Ventilator Ordered Settings Respiratory Rate 19 02/16/24 09:03 Ventilator - PT Measurements Respiratory Rate 19 Coding Level of Care Code 03496 SUB INP/OBS CARE 125MIN Diagnoses ST elevation (STEMI) myocardial infarction I21.3 Involved coronary artery: unspecified coronary artery Hyperglycemia due to diabetes mellitus E11.65 (1) ST elevation (STEMI) myocardial infarction Involved coronary artery: unspecified coronary artery Qualified Code(s): I21.3 - ST elevation (STEMI) myocardial infarction of unspecified site
--- NOTE | 2024-02-16 14:21 | XCELERA ---
[id number] \\[id number]___[id number]
--- NOTE | 2024-02-16 18:10 | Cardiology Progress Note ---
Date of Service February 16, 2024 Assessment & Plan (1) Benign essential hypertension: Plan: Blood pressure remains above target. Will increase the lisinopril to 20 mg daily and add isosorbide mononitrate 30 mg daily for anginal relief as well as blood pressure control. She will continue with metoprolol to tartrate 25 mg p.o. twice daily. (2) Atherogenic dyslipidemia: Plan: Patient is high risk. She has not only elevated cholesterol but also elevated triglycerides. Hemoglobin A1c demonstrates that her blood sugar has been very poorly controlled. This will need to be managed aggressively by her primary care physician. Agree with the use of Jardiance in this case. She will remain on a atorvastatin 40 mg daily but we will also add omega-3 fatty acids because of her hypertriglyceridemia. Of course, better control of her diet from diabetes and dyslipidemia standpoint will be useful in the long run. (3) ST elevation (STEMI) myocardial infarction: Plan: Successful PCI with stent implantation of the RCA. Echo shows only very borderline posterior hypokinesis and overall good LVEF. No significant valvular pathology. Unfortunately, she has severe residual multivessel disease which will need to be addressed in the near future. I recommend referral as an outpatient to CT surgical/interventional cardiology "heart team" evaluation to determine her best revascularization strategy per [facility] guidelines. This will be initiated after she is discharged. Guideline directed medical therapy for secondary prevention of coronary disease ongoing with aspirin, a atorvastatin, lisinopril, and metoprolol to tartrate. Antianginal regimen includes the addition of isosorbide mononitrate. At this time patient is appropriate for transfer from ICU to stepdown unit. Anticipate she will likely be appropriate for discharge tomorrow. We will strongly encourage her to participate in cardiac rehab. Admission and Anticipated Discharge Date Admission Date: February 15, 2024 Subjective Patient reports no recurrence of chest pain or shortness of breath. She did have some lower heart rates but no symptoms. No syncope or lightheadedness. No pain at the radial artery access site. Tolerating her current medical regimen. Review of Systems Review of Systems: Negative except as per HPI Physical Exam Constitutional: WD/WN, vitals as above (Obese) Neck: No JVD or bruits Respiratory: Clear to auscultation bilaterally. No wheezing, rhonchi, or rales. Cardiovascular: Regular rate and rhythm. S4 gallop. Do not appreciate any rubs or murmurs. No edema. Musculoskeletal: no cyanosis or clubbing, extremities motor strength 5/5 (Right radial access site intact. Good distal perfusion) Neurologic: Cognition is intact. Speech is fluent. No focal deficits. Psychiatric: A+Ox3, euthymic affect Results & Data Vital Signs (Past 12 Hours) Vital Signs Temp Pulse Resp BP Pulse Ox O2 Del Method 02/16/24 16:24 36.6 C 02/16/24 16:03 74 19 96 Room Air 02/16/24 16:00 150/103 H 02/16/24 16:00 76 02/16/24 15:06 76 21 97 02/16/24 15:00 140/104 H 02/16/24 14:12 76 22 95 02/16/24 13:06 72 17 95 02/16/24 13:00 151/104 H 02/16/24 12:41 Room Air 02/16/24 12:06 74 20 94 Room Air 02/16/24 12:00 133/85 02/16/24 12:00 36.8 C 02/16/24 11:48 73 22 92 02/16/24 11:06 71 20 90 02/16/24 11:00 147/89 H 02/16/24 10:57 71 19 93 02/16/24 10:00 84 20 91 02/16/24 10:00 153/107 H 02/16/24 09:12 88 21 90 02/16/24 09:04 158/108 H 02/16/24 09:03 83 19 90 02/16/24 09:02 156/116 H 02/16/24 08:42 84 22 95 02/16/24 08:18 79 20 96 02/16/24 07:00 131/109 H 02/16/24 07:00 67 14 95 Room Air PG Care Time/CCT Total # of Minutes Spent Total Time Spent with Patient: Total time spent is greater than 50% in coordination of care (as documented) at patient's floor/unit and/or counseling patient: Coding Level of Care Code 34024 SUB INP/OBS CARE 2/35MIN Diagnoses Benign essential hypertension I10 Atherogenic dyslipidemia E78.5 ST elevation (STEMI) myocardial infarction I21.3 Involved coronary artery: unspecified coronary artery Time Spent (min) 45 (3) ST elevation (STEMI) myocardial infarction Involved coronary artery: unspecified coronary artery Qualified Code(s): I21.3 - ST elevation (STEMI) myocardial infarction of unspecified site
--- NOTE | 2024-02-16 18:28 | Cardiology Consultation ---
Date of Consultation February 15, 2024 Assessment & Plan (1) ST elevation (STEMI) myocardial infarction: Patient's status post successful PCI of the RCA using a single large caliber drug-eluting stent. Good angiographic outcome and congregation of VANE-3 flow. No evidence of complication. She has severe residual coronary disease on the left side as described. She will remain on dual antiplatelet therapy with aspirin 81 mg daily and Brilinta 90 mg p.o. twice daily. Initiating guideline directed medical therapy for secondary prevention of coronary disease including a atorvastatin, lisinopril, and metoprolol to tartrate. Will obtain an echocardiogram regarding LV function, segmental wall motion, and any valvular pathology which may be pertinent. (2) Benign essential hypertension: Blood pressure still above target. Initiating lisinopril 10 mg daily, metoprolol to tartrate 25 mg p.o. twice daily. Will see how she responds to these and titrate her medical regimen further as indicated. (3) Atherogenic dyslipidemia: Patient is high risk. Fasting lipid panel is pending. She has been started on a atorvastatin 40 mg daily for "high intensity" statin therapy as recommended. Target LDL reduction will be determined by findings on lipid panel. Additional recommendations pending results. History of Present Illness Reason for Consultation: Acute inferior ST elevation ME Attending Physician: Kacy Thakkar MD History of Present Illness This is a late entry note for her acute presentation yesterday morning with acute inferior ST elevation ME. 43-year-old female who developed sudden onset chest pain and pressure with associated diaphoresis and shortness of breath occurring early in the morning. She came to the emergency department where she was found to have acute inferior ST elevation ME. A "heart alert" was called and on my arrival she continued with severe chest discomfort despite medical management. We quickly discussed indication for emergent cardiac catheterization and she agreed. She was therefore taken emergently to the cardiac catheterization suite where she underwent diagnostic coronary angiography via the radial artery approach followed by PCI of the RCA with implantation of a drug-eluting stent to the distal RCA. Noted to have severe residual left-sided coronary artery disease as described in the cath report. She is known to have diabetes and during that procedure and immediately preceding the procedure she had very elevated blood pressure. Systolic blood pressure was over 220 mmHg. Following PCI she had resolution of her symptoms and EKG changes. We did provide medications during the procedure which lowered her blood pressure to a more acceptable level. She was subsequently admitted to the ICU for further workup and management. Patient denies any preceding chest pain, heaviness, or tightness. She also denied any syncope, near syncope, orthopnea, PND, racing heartbeat, palpitations, or edema. She voices no other complaints or concerns at that time. Does not use tobacco. She has a history of ASD as a child and had surgical closure at that time. Strong family history of diabetes. I also spoke with her and her mother who confirmed. Allergies Allergy/AdvReac Type Severity Reaction Status Date / Time No Known Allergies Allergy Verified 04/30/22 19:45 Home Medications Medication Instructions Recorded Confirmed Type blood sugar diagnostic (OneTouch #60 ea 05/03/22 Rx Verio test strips) blood-glucose meter (OneTouch #1 ea 05/03/22 Rx Verio Meter) lancets 33 gauge (OneTouch Delica #100 ea 05/03/22 Rx Lancets) lisinopril 10 mg tablet 10 mg PO QAM 02/15/24 02/15/24 History metformin 500 mg tablet 500 mg PO BID 02/15/24 02/15/24 History Patient History Medical History Hypertension History of open heart surgery Diabetes mellitus Surgical History History of Social History Smoking Status: Never smoker Second Hand Exposure: No; Do You Dip or Chew Tobacco: No; Hx Alcohol Use: No Hx Substance Use: No Preferred Language: Malay Communication Ability: Effective Shop Service Technician Required: No Beliefs That Will Affect Care: None Current Living Situation: Spouse Current Living Situation Comment: Home with Feels Safe at Home: Yes Assistive Devices: None Review of Systems Review of Systems: Negative except as per HPI Physical Exam Constitutional: WD/WN, vitals as above Eyes: Extraocular muscles intact. Sclera are anicteric. ENMT: Oral mucosa is pink moist and intact Neck: No JVD or bruits Respiratory: Clear to auscultation bilaterally. No wheezing, rhonchi, or rales. Good air movement. Cardiovascular: Regular rate and rhythm. Distant heart sounds. S4 gallop. No rubs or murmurs. No edema. Musculoskeletal: no cyanosis or clubbing, extremities motor strength 5/5 Neurologic: Cognition is intact. Speech is fluent. No focal deficits. Psychiatric: A+Ox3, euthymic affect Results & Data Vital Signs (Past 12 Hours) Vital Signs Temp Pulse Resp BP Pulse Ox O2 Del Method 02/16/24 16:24 36.6 C 02/16/24 16:03 74 19 96 Room Air 02/16/24 16:00 150/103 H 02/16/24 16:00 76 02/16/24 15:06 76 21 97 02/16/24 15:00 140/104 H 02/16/24 14:12 76 22 95 02/16/24 13:06 72 17 95 02/16/24 13:00 151/104 H 02/16/24 12:41 Room Air 02/16/24 12:06 74 20 94 Room Air 02/16/24 12:00 133/85 02/16/24 12:00 36.8 C 02/16/24 11:48 73 22 92 02/16/24 11:06 71 20 90 02/16/24 11:00 147/89 H 02/16/24 10:57 71 19 93 02/16/24 10:00 84 20 91 02/16/24 10:00 153/107 H 02/16/24 09:12 88 21 90 02/16/24 09:04 158/108 H 02/16/24 09:03 83 19 90 02/16/24 09:02 156/116 H 02/16/24 08:42 84 22 95 02/16/24 08:18 79 20 96 02/16/24 07:00 131/109 H 02/16/24 07:00 67 14 95 Room Air PG Care Time/CCT Total # of Minutes Spent Total Time Spent with Patient: Total time spent is greater than 50% in coordination of care (as documented) at patient's floor/unit and/or counseling patient: I spent a total of 65 minutes critical care time in the initial carolyn luation/examination of the patient, review of the EKG and medical records, discussion with the emergency medicine staff as well as cardiology care team, discussion with the patient and family, formulation and implementation of a plan of care and all associated documentation. This time is exclusive of the time spent for the procedure. Coding Level of Care Code 45743 CRITICAL CARE 1ST 30-74M Diagnoses ST elevation (STEMI) myocardial infarction I21.3 Involved coronary artery: unspecified coronary artery Benign essential hypertension I10 Atherogenic dyslipidemia E78.5 Time Spent (min) 65 (1) ST elevation (STEMI) myocardial infarction Involved coronary artery: unspecified coronary artery Qualified Code(s): I21.3 - ST elevation (STEMI) myocardial infarction of unspecified site
[2024-02-16] MEDS: OMEGA-3 (PURIFIED FISH OIL) 1 GM CAP PO SCH (21:16)
--- NOTE | 2024-02-16 21:56 | Electrocardiogram Report ---
Test Reason : Blood Pressure : */* mmHG Vent. Rate : 76 BPM Atrial Rate : 76 BPM P-R Int : 140 ms QRS Dur : 78 ms QT Int : 422 ms P-R-T Axes : 28 7 57 degrees QTcB Int : 474 ms Age and gender specific ECG analysis Normal sinus rhythm Inferior infarct , possibly acute ACUTE PR / STEMI Consider right ventricular involvement in acute inferior infarct Poor R wave progression, consider anterior PR vs. lead placement vs. LVH Abnormal ECG When compared with ECG of 15-Feb-2024 13:04, No significant change was found Confirmed by Polo Blake ([id number]) on 02/16/2024 9:56:16 PM Referred By: REFERRED SELF Confirmed By: Polo Blake
[2024-02-17 05:35] LABS: BUN Creatinine Ratio 34.4 (10-20); Calcium 8.5 mg/dl (8.6-10.3); Creatinine Clr Calc Pharmacy 136.7 ml/min; Est GFR (African American) 129.6 ml/min; Est GFR (Non-African American) 111.8 ml/min; Potassium 3.6 mmol/L (3.5-5.1)
[2024-02-17 06:17] LABS: Basophils # (auto) 0.07 K/uL (0.00-0.20); Basophils % (auto) 0.8 %; Eosinophils # (auto) 0.15 K/uL (0.00-0.50); Eosinophils % (auto) 1.8 %; Hematocrit (blood only) 39.6 % (37.0-47.0); Hemoglobin 13.9 g/dl (12.0-16.0); Immature Granulocytes # (auto) 0.13 K/uL (0.01-0.20); Immature Granulocytes % (auto) 1.5 %; Lymphocytes # (auto) 2.14 K/uL (1.20-3.40); Lymphocytes % (auto) 25.4 %; Mean Corpuscular Hemoglobin 29.3 pg (25.0-34.0); Mean Corpuscular Hgb Conc 35.1 g/dL (32.0-36.0); Mean Corpuscular Volume 83.5 fL (80.0-100.0); Mean Platelet Volume 10.6 fL (9.4-12.4); Monocytes # (auto) 0.68 K/uL (0.11-0.59); Monocytes % (auto) 8.1 %; Neutrophils # (auto) 5.25 K/uL (1.40-6.50); Neutrophils % (auto) 62.4 %; Platelet Count 233 K/uL (130-400); RDW Coefficient of Variation 12.1 % (11.5-14.5); RDW Standard Deviation 37.1 fL (36.4-46.3); Red Blood Count 4.74 M/uL (4.20-5.40); White Blood Count 8.42 K/ul (4.8-10.8)
[2024-02-17] MEDS: metFORMIN HCL 500 MG TAB PO SCH (07:33)
[2024-02-17] MEDS: ISOSORBIDE MONO EXTENDED REL 30 MG TABCR PO SCH (07:34)
[2024-02-17] MEDS: lisinopril 20 MG TAB PO SCH (07:35)
[2024-02-17] MEDS ORDERED: lisinopril 10 MG TAB PO SCH (09:00)
[2024-02-17 09:24] VITALS: TEMP 98.2
--- NOTE | 2024-02-17 10:29 | Cardiology Progress Note ---
Date of Service February 17, 2024 Assessment & Plan (1) ST elevation (STEMI) myocardial infarction: Plan: Status post PCI. No complications and no ongoing symptoms. Significant residual disease in the LAD, D1, OM1, and distal circumflex. Patient is diabetic. We will be making an outpatient referral to [facility] so she may be evaluated by the "heart team" regarding surgical versus percutaneous revascularization for this residual disease. Currently her blood pressure and heart rate are above target. She will remain on dual antiplatelet therapy. We will convert her from Brilinta to Plavix given cost. Therefore, holding Brilinta for evening dose and she will be loaded with Plavix 300 mg p.o. x 1. Beginning tomorrow she will take Plavix 75 mg p.o. daily in addition to her low-dose aspirin. Current guideline directed medical therapy for secondary prevention of coronary disease includes the low-dose aspirin, atorvastatin 40 mg daily, lisinopril 20 mg daily, and metoprolol to tartrate 25 mg p.o. twice daily. The metoprolol tartrate dose will be increased as below. Patient will have outpatient referral to cardiac rehab. Patient will see me in follow-up in the office later this week. (2) Benign essential hypertension: Plan: Blood pressure above target. Patient will remain on lisinopril 20 mg daily, metoprolol tartrate will be increased to 37.5 mg p.o. twice daily, and she will also continue with isosorbide mononitrate 30 mg daily for anginal relief in addition to blood pressure control. (3) Atherogenic dyslipidemia: Plan: Patient is high risk (diabetes and coronary artery disease). High intensity statin therapy currently ongoing with a atorvastatin 40 mg daily. We will reevaluate her lipid panel in 3 months time and adjust her regimen as indicated. Also, her diabetes needs to be better controlled. This will be managed by her primary care provider. Agree with Jardiance given its cardiovascular benefits in addition to the diabetes recommendations. Plan After the patient has received her evening medications she will be appropriate for discharge from a cardiovascular standpoint. Office will be contacting her regarding follow-up appointment with me later this week. Admission and Anticipated Discharge Date Admission Date: February 15, 2024 Subjective Patient doing relatively well. No chest pain or shortness of breath. No pain at the cardiac cath access site. No events overnight. Noted that her blood pressure was very elevated this morning prior to receiving her a.m. medications. Review of Systems Review of Systems: Negative except as per HPI Physical Exam Constitutional: WD/WN, vitals as above Eyes: Extraocular muscles intact. Sclera are anicteric. ENMT: Oral mucosa is pink moist and intact Neck: No JVD or bruits Respiratory: Clear to auscultation bilaterally. No wheezing, rhonchi, or rales. Good air movement. Cardiovascular: Regular rate and rhythm. Distant heart sounds. S4 gallop. No rubs or murmurs. No edema. Musculoskeletal: no cyanosis or clubbing, extremities motor strength 5/5 Neurologic: Cognition is intact. Speech is fluent. No focal deficits. Psychiatric: A+Ox3, euthymic affect Results & Data Vital Signs (Past 12 Hours) Vital Signs Temp Pulse Resp BP Pulse Ox O2 Del Method 02/17/24 09:12 148/88 H 02/17/24 08:27 78 24 02/17/24 08:00 36.8 C 02/17/24 07:19 173/120 H 02/17/24 07:09 78 18 95 Room Air 02/17/24 04:03 36.6 C 72 19 94 02/17/24 03:57 167/104 H 02/17/24 00:09 156/101 H 02/17/24 00:09 156/101 H 02/17/24 00:09 36.6 C 70 12 02/17/24 00:00 62 PG Care Time/CCT Total # of Minutes Spent Total Time Spent with Patient: Total time spent is greater than 50% in coordination of care (as documented) at patient's floor/unit and/or counseling patient: Coding Level of Care Code 03750 SUB INP/OBS CARE 2/35MIN Diagnoses ST elevation (STEMI) myocardial infarction I21.3 Involved coronary artery: unspecified coronary artery Benign essential hypertension I10 Atherogenic dyslipidemia E78.5 (1) ST elevation (STEMI) myocardial infarction Involved coronary artery: unspecified coronary artery Qualified Code(s): I21.3 - ST elevation (STEMI) myocardial infarction of unspecified site
--- NOTE | 2024-02-17 15:04 | Discharge Summary ---
Discharge Summary Date of Service February 17, 2024 Principal Dx & Hospital Course #1 = Principal Diagnosis (1) ST elevation (STEMI) myocardial infarction: 43 y/o presented with STEMI found to have occlusion of distal RCA which was treated with successful PCI. Also found to have severe multivessel CAD in need of evaluation for further treatment with CABG or staged multivessel PCI. EF was 50% during angiography. following PCI she had no further ischemic symptoms. TTE with normal LV, borderline posterior hypokinesis, normal RV function, mod LVH, mild dilated IVC plan is for outpatient referral to tertiary care center for multivessel coronary artery disease, referral to cardiac rehab she was started on aspirin and Plavix. Brilinta was too costly initiated atorvastatin. lipids TG 463, HDL 34, direct LDL 105 started metoprolol, continue lisinopril, started SGLT2 addressed diabetes control follow-up with Dr. Pires (2) Hyperglycemia due to diabetes mellitus: Appears to be chronically uncontrolled with HbA1C 9.3 in 2021 on metformin and she remains only on metformin now with HbA1C 10.1, although she maintains previous to 2021 her HbA1C was around 6.5 on metformin alone. increase metformin to 1000 mg twice daily and started Jardiance 10 mg daily. counseled to hold the Jardiance if she is ill and not eating drinking well or prior to procedures. 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 Chest pain was substernal radiating to her left side with tingling in her left arm, severity 10/10 (currently 0/10), no worse on exertion/inspiration/position, associated shortness of breath, no diaphoresis, nausea or vomiting, progressively got worse over the course of 2 hours at which point she came to the ER. She reports no exertional chest pain or shortness of breath prior to this just the occasional chest tightness while walking in the cold which has been stable for years. No personal or significant family history of heart attacks or strokes. She has never smoked. She was diagnosed with hypertension and previously on lisinopril/hydrochlorothiazide however when she changed healthcare systems to [facility] this was changed to lisinopril alone which she thinks was a mistake in the switch and she didn't realize her medications were changed. She has a significant diagnosis of diabetes with an HbA1c 9.3 in 2021 during hospitalization for pneumonia however her diabetic regimen was not increased on discharge and she reports multiple canceled appointments since then and no repeat HbA1c until today it was 10.1. She has a significant history of open heart surgery at 16 years old to close a an atrial septal defect. Discharge Exam PHYSICAL EXAMINATION Last 24h vital signs reviewed, see documentation in flowsheet General: comfortable appearing, no distress, awake lying in ICU bed exam is unchanged 02/16: HEENT: Normocephalic, atraumatic, pupils round and equal, sclerae anicteric, no conjunctival injection, moist mucus membranes Lungs: Normal respiratory effort. Clear to auscultation bilaterally. No RRW Heart: Regular rate and rhythm, no murmurs. No JVD Abdomen: Soft, nontender, nondistended. Bowel sounds present. Extremities: Warm, dry, well-perfused. No extremity edema. right radial puncture site with good pulse no ecchymosis no swelling, hand is warm Neuro: Alert and oriented x 4, face symmetric, moves 4 extremities well Psych: Normal affect and behavior Discharge Plan Discharge Items Patient Disposition: Home - Self-Care Reason For Visit: STEMI Discharge Diagnosis: RCA STEMI Activity: Per Instructions section Non-emergency contact: Primary Care Provider and Product Planner Call non-emergency contact if: you have any medication questions, your symptoms worsen, your pain is not controlled, you have a fever, your temperature is above 101.5 and your wound has increased redness Follow-up/Referrals: Gustabo Pires MD, PhD [Physician] - Therese Shelley PA-C [Outside Practitioners] - Diet: Carb Consistent or DM2 and Heart Healthy Addtl Attending Provider Instructions: You were treated for heart attack A stent was placed to open your right coronary artery You have blockages in multiple other coronary arteries - referral is planned to tertiary care for further evaluation You need to take both aspirin and plavix (clopidogrel) to keep the stent open Stopping these prematurely or running out could cause the stent to clot up, which can cause a severe heart attack Other medicines to protect your heart: metoprolol - lowers BP, slows and strengthens the heart beat lisinopril - lowers BP and decreases the workload for your heart muscle isosorbide - lowers BP and relaxes the heart arteries, anti-anginal atorvastatin - lowers cholesterol and prevents progression of coronary artery disease Follow up with Dr. Pires in 1-2 weeks Your diabetes is out of control. Controlling the diabetes is one of the best ways to protect your heart, kidneys and brain we increased your metformin we added jardiance (empagliflozin) - this improves blood sugar control and slows/prevents cardiovascular disease monitor your blood sugar at least every morning control your diet, emphasize vegetables and lean meats follow up with your primary care doctor in 1-2 weeks to check on BP and diabetes ACTIVITY RECOMMENDATIONS: It is common to feel weak and fatigue for a few days. * Do not drive or operate any motorized equipment for the next three days. * Limit stair usage (2 or 3 trips a day only) for the next three days. * Do not lift anything heavier than 10 pounds for the next three days. * Do not engage in vigorous exercise or any sports for the next five days. * You may shower the day after your procedure, but do not immerse the area for three days. Cleanse the site gently with soap and water. SPECIAL CARE INSTRUCTIONS: * You may replace the pressure dressing or band-aid the morning after the procedure. * After your procedure, it is normal to have a small bruise or small lump at the site. Examine your site daily for any change in the bruise or lump, redness, swelling, drainage or numbness. Notify your doctor if any change. BLEEDING: * If there is a small amount of bleeding at the site, lie down and apply firm pressure with a clean cloth for ten minutes. When the bleeding stops, lie quietly keeping the procedure limb straight for six hours. Notify your doctor as soon as possible. * If the bleeding does not stop after ten minutes or if there is a large amount of bleeding or spurting, call 911 immediately. Continue to lie down and hold firm pressure until help arrives. SKIN IRRITATION: * You may experience some redness and/or swelling in the area where radiation was administered. If any skin irritation occurs, please contact your family physician. FOLLOW UP VISIT: Keep any scheduled doctor appointments. Pending Studies at Discharge: No Stand-Alone Forms: [facility], Smoking Cessation Medications and DC Order Prescriptions: New atorvastatin 40 mg Tablet 40 mg PO QAM Qty: 30 1RF aspirin 81 mg Tablet,Delayed Release (Dr/Ec) 81 mg PO QAM Qty: 0 0RF metformin 1,000 mg tablet 1,000 mg PO BIDWMEAL Qty: 60 1RF empagliflozin 10 mg tablet 10 mg PO DAILY Qty: 30 1RF Fish Oil [[place]-3 (Purified Fish Oil)] 1 g PO BID Qty: 180 3RF nitroglycerin [Nitrostat] 0.4 mg Tablet, Sublingual 0.4 mg sublingual Q5M PRN (Reason: chest pain) Qty: 20 0RF clopidogrel 75 mg Tablet 75 mg PO QAM Qty: 90 3RF lisinopril 20 mg Tablet 20 mg PO QAM Qty: 90 3RF isosorbide mononitrate 30 mg Tablet Extended Release 24 Hr 30 mg PO QAM Qty: 90 3RF metoprolol tartrate 25 mg Tablet 37.5 mg PO BID Qty: 270 3RF Continued (DME) blood-glucose meter [OneTouch Verio Meter] Misc See Rx Instructions .Route Qty: 1 0RF Rx Instructions: twice a day (DME) OneTouch Verio test strips Strip See Rx Instructions .Route Qty: 60 0RF Rx Instructions: twice a day (DME) lancets [OneTouch Delica Lancets] 33 gauge misc See Rx Instructions .ROUTE .MEDSUPPLY Qty: 100 0RF Rx Instructions: twice a day Discontinued metformin 500 mg tablet 500 mg PO BID lisinopril 10 mg tablet 10 mg PO QAM Discharge Orders: Discharge Order (Routine); Ordered 02/17/24 Ordered By: Gustabo Olivas/Other Patient Handouts: Managing Type 2 Diabetes, Heart Attack Dc Admission Data Admit Date/Time: 02/15/24 08:02 Attending Provider: Kacy Thakkar Admit Provider: Tru Sal Primary Care Provider: Mayi Mehta Other Providers: Tru Sal; Yvan Childers; Gustabo Pires Other Interventions: Discharge Summary Assessment (RN) Last Done: 02/17/24 11:32 Hospital Stay Data Consultations 02/15/24 07:53 ED Decision to Admit Stat 02/15/24 08:02 Consult Telecommunications Operator Routine 02/15/24 09:08 Consult Cardiac Rehabilitation Routine 02/15/24 11:38 Consult Cardiology Stat Procedures Performed Operation Date: 02/15/24 08:00 Actual Procedures p Cineradiography w/Routine Exam(Right) - Gustabo Pires MD, PhD p Aspiration/PCI w/JOVON for Stemi - Gustabo Pires MD, PhD Diagnostic Imagining Performed 02/15/24 07:31 CL Cath Imgs for PACS use only Stat Pending Results Patient Have Any Pending Studies at Discharge: No Discharge Instructions Given to Patient (Per Discharging Provider) You were treated for heart attack A stent was placed to open your right coronary artery You have blockages in multiple other coronary arteries - referral is planned to tertiary care for further evaluation You need to take both aspirin and plavix (clopidogrel) to keep the stent open Stopping these prematurely or running out could cause the stent to clot up, which can cause a severe heart attack Other medicines to protect your heart: metoprolol - lowers BP, slows and strengthens the heart beat lisinopril - lowers BP and decreases the workload for your heart muscle isosorbide - lowers BP and relaxes the heart arteries, anti-anginal atorvastatin - lowers cholesterol and prevents progression of coronary artery disease Follow up with Dr. Pires in 1-2 weeks Your diabetes is out of control. Controlling the diabetes is one of the best ways to protect your heart, kidneys and brain we increased your metformin we added jardiance (empagliflozin) - this improves blood sugar control and slows/prevents cardiovascular disease monitor your blood sugar at least every morning control your diet, emphasize vegetables and lean meats follow up with your primary care doctor in 1-2 weeks to check on BP and diabetes ACTIVITY RECOMMENDATIONS: It is common to feel weak and fatigue for a few days. * Do not drive or operate any motorized equipment for the next three days. * Limit stair usage (2 or 3 trips a day only) for the next three days. * Do not lift anything heavier than 10 pounds for the next three days. * Do not engage in vigorous exercise or any sports for the next five days. * You may shower the day after your procedure, but do not immerse the area for three days. Cleanse the site gently with soap and water. SPECIAL CARE INSTRUCTIONS: * You may replace the pressure dressing or band-aid the morning after the procedure. * After your procedure, it is normal to have a small bruise or small lump at the site. Examine your site daily for any change in the bruise or lump, redness, swelling, drainage or numbness. Notify your doctor if any change. BLEEDING: * If there is a small amount of bleeding at the site, lie down and apply firm pressure with a clean cloth for ten minutes. When the bleeding stops, lie quietly keeping the procedure limb straight for six hours. Notify your doctor as soon as possible. * If the bleeding does not stop after ten minutes or if there is a large amount of bleeding or spurting, call 911 immediately. Continue to lie down and hold firm pressure until help arrives. SKIN IRRITATION: * You may experience some redness and/or swelling in the area where radiation was administered. If any skin irritation occurs, please contact your family physician. FOLLOW UP VISIT: Keep any scheduled doctor appointments. Total Time Total Time Spent Total Time Spent (In Minutes): <30 minutes Coding Level of Care Code 44025 IN/OBS DISCH 30 MIN/LESS Diagnoses ST elevation (STEMI) myocardial infarction I21.3 Involved coronary artery: unspecified coronary artery Hyperglycemia due to diabetes mellitus E11.65 Primary hypertension I10 Hypertension type: primary hypertension
[2024-02-17] MEDS: CLOPIDOGREL BISULFATE 300 MG TAB PO ONE (16:06)
[2024-02-17 16:30] VITALS: BP 150/87; PULSE 74; RESP 17; O2SAT 95
[2024-02-17] MEDS ORDERED: METOPROLOL TARTRATE 25 MG TAB PO SCH (21:00)
[2024-02-18] MEDS ORDERED: CLOPIDOGREL BISULFATE 75 MG TAB PO SCH (09:00)
== END 2024-02-17 17:00 | disposition home or self-care (01) | DRG 322 ==
LOC: ED 07:13 → 1E 07:59 → CC 07:59 → SUATTDRO 08:02 → 1E 08:02